=== PATIENT | male | born 1940 | race Caucasian/White ===

== ENCOUNTER 2022-07-10 15:50 | Inpatient (IN) ==
[2022-07-10 17:28] LABS: Basophils # (Auto) 0.03 K/mcL (0.00-0.30); Basophils % (Auto) 0.2 % (0.0-2.0); Eosinophils # (Auto) 0.02 K/mcL (0.00-0.70); Eosinophils % (Auto) 0.1 % (0.0-7.0); Hematocrit 38.9 % (40.1-51.0); Hemoglobin 12.8 g/dL (13.7-17.5); Lymphocytes # (Auto) 1.35 K/mcL (1.50-4.80); Lymphocytes % (Auto) 9.2 % (15.5-49.0); Mean Cell Volume 90.7 fL (80.0-100.0); Mean Corpuscular HGB Conc 32.9 g/dL (31.0-36.0); Mean Platelet Volume 9.8 fL (7.4-10.4); Monocytes # (Auto) 0.73 K/mcL (0.10-0.90); Neutrophils % (Auto) 83.9 % (38.0-78.0); Platelet Count 209 K/mcL (140-440); RBC 4.29 M/mcL (4.63-6.08); Red Cell Distribution Width 15.7 % (11.5-14.5); WBC 14.7 K/mcL (4.5-11.0)
--- NOTE | 2022-07-10 17:35 | Emergency Department Note ---
HPI General Chief complaint: Dizziness Stated complaint: Stroke Sx Time Seen by Provider: 07/10/22 16:04 Source: patient and family Mode of arrival: wheelchair Limitations: no limitations History of Present Illness HPI Narrative: Narrative: Patient is an 81-year-old male who presents to the emergency department due to weakness, difficulty with balance, and pain to left elbow and right lower extremity. Patient states that he fell and hit his elbow about 2 days ago. Since then he has had worsening swelling and pain of his left elbow and right lower extremity. He states that during that time he has also become very weak and has had difficulty with his balance. He states that prior to his injury he did not have any difficulty with weakness or balance. He states that the pain in the left elbow is just to the posterior portion of the elbow, and does endorse redness to the elbow and swelling. He also endorses pain to the right leg with some pain to the buttocks as well. He denies fever, chills, runny nose, sore throat, chest pain, shortness of breath, abdominal pain, nausea, vomiting, or any other concerns at this time. Related Data Allergies Allergy/AdvReac Type Severity Reaction Status Date / Time No Known Drug Allergies Allergy Verified 07/10/22 15:57 Review of Systems ROS ROS Narrative: Narrative: Constitutional: Reports weakness (Generalized); Denies fever Eyes: Denies eye pain or vision change ENT ED: Denies throat pain, hearing loss or rhinorrhea Cardiovascular: Denies chest pain or edema Respiratory: Denies shortness of breath or cough Gastrointestinal: Denies abdominal pain, nausea, vomiting, diarrhea, constipation, hematochezia or melena Genitourinary: Denies dysuria, frequency, hematuria or incontinence Musculoskeletal: Denies back pain or myalgia Integumentary: Reports lesions; Denies rash Neurological: Denies headache, weakness, numbness, confusion or dizziness [facility] Narrative Patient History Narrative: Narrative: Medical/Surgical/Family History All Active Problems (Updated 07/10/22 @ 20:51 by Gabriel Jiménez MD) Cellulitis (Acute) Bursitis (Acute) Lymphangitis (Acute) Social History Smoking Status: Never smoker Exam Narrative Narrative: Narrative: General Limitations: no limitations General appearance: Present alert and in no apparent distress; Absent anxious or appears intoxicated Head Head: Present atraumatic and normocephalic Eye Eye: Present PERRL, EOMI and visual alexander intact; Absent scleral icterus or nystagmus ENT ENT: Present mucous membranes moist; Absent nasal congestion Neck Neck: Present full ROM; Absent tenderness Chest Chest: Present normal inspection and symmetric chest wall rise; Absent t enderness Respiratory Respiratory: Present normal lung sounds bilaterally; Absent respiratory distress or accessory muscle use Cardiovascular Cardiovascular: Present regular rate, normal rhythm and normal heart sounds Adbominal Abdominal: Present soft and normal bowel sounds; Absent distention or tenderness Extremities Extremities: Present normal inspection, full ROM and tenderness (Left elbow and right lower extremity) Back Back: Present normal inspection and full ROM; Absent tenderness Neurological Neurological: Present alert, oriented X3, CN II-XII intact, normal gait and reflexes normal; Absent motor sensory deficit Psychiatric Psychiatric: Present normal affect and normal mood Skin Skin: Present warm (WNL), dry, normal color and erythema (Significant portion of right leg with lymphangitis up medial right thigh to groin, left elbow) Course Vital Signs Vital signs: Vital Signs Temperature 98.0 F 07/10/22 15:54 Pulse Rate 83 07/10/22 15:54 Respiratory Rate 18 07/10/22 15:54 Blood Pressure 111/57 07/10/22 15:54 Pulse Oximetry (%) 98 07/10/22 15:54 Oxygen Delivery Method 07/10/22 15:54 Temperature 98.0 F 07/10/22 15:54 Pulse Rate 79 07/10/22 20:31 Respiratory Rate 19 07/10/22 20:31 Blood Pressure 103/68 07/10/22 20:31 Pulse Oximetry (%) 98 07/10/22 20:31 Oxygen Delivery Method 07/10/22 15:54 [facility] Narrative Medical decision making narrative: Narrative: Patient is an 81-year-old male who presents to the emergency department due to weakness and balance concern. Patient is found to have erythema and swelling over the left elbow that is concerning for potential septic bursitis. There is a significant amount of erythema of the posterior elbow over the swelling that is only posterior on the elbow. For this reason a tap of the bursa was not attempted. Labs including blood cultures were ordered. Antibiotics including vancomycin and ceftriaxone were also ordered. Given right lower extremity swelling and ultrasound was performed and did not demonstrate clot. Patient's right lower extremity is concerning for a cellulitis and lymphangitis. Given the significant findings I have spoken to our hospitalist was agreed to see and evaluate patient for admission. Lab Data Result diagrams: 07/10/22 17:00 07/10/22 17:00 Labs: Lab Results 07/10/22 07/10/22 07/10/22 Range/Units 17:00 17:00 17:00 WBC 14.7 H (4.5-11.0) K/mcL RBC 4.29 L (4.63-6.08) M/mcL Hgb 12.8 L (13.7-17.5) g/dL Hct 38.9 L (40.1-51.0) % MCV 90.7 (80.0-100.0) fL MCH 29.8 (26.0-34.0) pg MCHC 32.9 (31.0-36.0) g/dL RDW 15.7 H (11.5-14.5) % Plt Count 209 (140-440) K/mcL MPV 9.8 (7.4-10.4) fL Immature Gran % (Auto) 1.6 H (0.0-0.5) % Neut % (Auto) 83.9 H (38.0-78.0) % Lymph % (Auto) 9.2 L (15.5-49.0) % [place] % (Auto) 5.0 (1.0-12.0) % Eos % (Auto) 0.1 (0.0-7.0) % Baso % (Auto) 0.2 (0.0-2.0) % Lymph # (Auto) 1.35 L (1.50-4.80) K/mcL [place] # (Auto) 0.73 (0.10-0.90) K/mcL Eos # (Auto) 0.02 (0.00-0.70) K/mcL Baso # (Auto) 0.03 (0.00-0.30) K/mcL Immature Gran # 0.24 H (0.00-0.05) K/mcl Absolute Neutrophils 12.35 H (1.80-8.00) K/mcL ESR 40 H (0-20) mm/hr VBG Lactic Acid (0.5-2.0) mmol/L Sodium 135 (133-145) mmol/L Potassium 2.6 L* (3.3-5.1) mmol/L Chloride 95 L (96-108) mmol/L Carbon Dioxide 21 L (22-30) mmol/L Anion Gap 19.0 H (8.0-16.0) BUN 47 H (8-23) mg/dL Creatinine 3.4 H (0.7-1.2) mg/dL GFR Calculation 16 Glucose 104 (70-105) mg/dL Calcium 8.5 L (8.6-10.4) mg/dL Total Bilirubin 0.5 (0.1-1.0) mg/dL AST 26 (<40) U/L ALT 18 (<40) U/L Alkaline Phosphatase 148 H (39-117) U/L C-Reactive Protein (0.03-0.80) mg/dL Total Protein 7.5 (5.9-8.4) gm/dL Albumin 3.2 (3.2-5.2) gm/dL Globulin 4.3 H (2.2-3.7) gm/dL Albumin/Globulin Ratio 0.7 L (1.0-2.3) 07/10/22 07/10/22 Range/Units 18:35 19:27 WBC (4.5-11.0) K/mcL RBC (4.63-6.08) M/mcL Hgb (13.7-17.5) g/dL Hct (40.1-51.0) % MCV (80.0-100.0) fL MCH (26.0-34.0) pg MCHC (31.0-36.0) g/dL RDW (11.5-14.5) % Plt Count (140-440) K/mcL MPV (7.4-10.4) fL Immature Gran % (Auto) (0.0-0.5) % Neut % (Auto) (38.0-78.0) % Lymph % (Auto) (15.5-49.0) % [place] % (Auto) (1.0-12.0) % Eos % (Auto) (0.0-7.0) % Baso % (Auto) (0.0-2.0) % Lymph # (Auto) (1.50-4.80) K/mcL [place] # (Auto) (0.10-0.90) K/mcL Eos # (Auto) (0.00-0.70) K/mcL Baso # (Auto) (0.00-0.30) K/mcL Immature Gran # (0.00-0.05) K/mcl Absolute Neutrophils (1.80-8.00) K/mcL ESR (0-20) mm/hr VBG Lactic Acid 1.8 (0.5-2.0) mmol/L Sodium (133-145) mmol/L Potassium (3.3-5.1) mmol/L Chloride (96-108) mmol/L Carbon Dioxide (22-30) mmol/L Anion Gap (8.0-16.0) BUN (8-23) mg/dL Creatinine (0.7-1.2) mg/dL GFR Calculation Glucose (70-105) mg/dL Calcium (8.6-10.4) mg/dL Total Bilirubin (0.1-1.0) mg/dL AST (<40) U/L ALT (<40) U/L Alkaline Phosphatase (39-117) U/L C-Reactive Protein 26.10 H (0.03-0.80) mg/dL Total Protein (5.9-8.4) gm/dL Albumin (3.2-5.2) gm/dL Globulin (2.2-3.7) gm/dL Albumin/Globulin Ratio (1.0-2.3) Discharge Plan Patient/Caregiver Discharge Instructions 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
[2022-07-10 17:50] LABS: ALT/SGPT 18 U/L (<40); AST/SGOT 26 U/L (<40); Albumin 3.2 gm/dL (3.2-5.2); Albumin/Globulin Ratio 0.7 (1.0-2.3); Alkaline Phosphatase 148 U/L (39-117); Bilirubin,Total 0.5 mg/dL (0.1-1.0); Blood Urea Nitrogen 47 mg/dL (8-23); Calcium 8.5 mg/dL (8.6-10.4); Carbon Dioxide 21 mmol/L (22-30); Chloride 95 mmol/L (96-108); Globulin 4.3 gm/dL (2.2-3.7); Glomerular Filtration Rate 16; Glucose 104 mg/dL (70-105)
[2022-07-10] MEDS ORDERED: VANCOMYCIN 1,500 MG in 0.9 % SODIUM CHLORIDE 500 ML IV ONE (18:12)
[2022-07-10] MEDS ORDERED: cefTRIAXone 1 GM VIAL IV ONE (18:17)
--- NOTE | 2022-07-10 18:32 | XRay Report ---
CLINICAL INFORMATION: Trauma COMPARISON: None. FINDINGS: The elbow shows mild degeneration. Small effusion is noted with a 8 mm loose body in the anterior recess region. Heavy ossification of the triceps tendon insertion on the olecranon. No fracture identified. Marked posterior soft tissue swelling. IMPRESSION: No fracture. Marked posterior periarticular soft tissue swelling likely posttraumatic contusion Small effusion with an 8 mm loose body in the anterior aspect and mild elbow degeneration Interpreted and Authenticated by: Malcolm Cunningham 07/10/22
[2022-07-10] MEDS ORDERED: 0.9 % SODIUM CHLORIDE 500 ML IV ONE (19:17)
[2022-07-10] MEDS ORDERED: POTASSIUM CHLORIDE 20 MEQ TABLET PO ONE (19:41)
--- NOTE | 2022-07-10 19:45 | Internal Med History&Physical ---
HPI History of Present Illness Patient information: Note initiated : 07/10/22 at 7:34 pm Service Date, if different from initiated Date: [] Patient: Stas Canela 81 y/o M admitted on for Stroke Sx. Chief Complaint: [] History of present illness: Mr. Canela is a 81 year old M Presents to the ED with weakness and dizziness status progressed over the past 3 days. Patient fell out of the exercise bike about a week ago onto his left elbow. His elbow has become increasingly red swollen and tender. Then about 3 days ago he came severely weak and unable to move around much. He saw his primary care provider today who sent him into the ED. Patient found to have a cellulitis left elbow concern for septic bursitis. He had a leukocytosis of almost 15 with a hypotension and acute kidney injury and hypokalemia. Patient also has a history of A. fib CHF systolic dysfunction CAD with CABG. His right leg was swollen with some excoriations and erythematous. He has had problems with his leg since he multiple fractures on that lower extremity as well as veins taken from and from his CABG. He says his leg becomes red and swollen on occasion but its been worse lately and its painful. He denies fevers chills coughing or shortness of breath. Review of Systems: Pertinent positives as above. Denies headache/fever/chills/nausea/vomiting/chest or abdominal pain/cough/dyspnea/diarrhea. Remaining 10 point review of system reviewed negative PFSH PFSH Social History smoking status: Never smoker MEDS/ALLERGIES Home Medications and Allergies Allergies Allergy/AdvReac Type Severity Reaction Status Date / Time No Known Drug Allergies Allergy Verified 07/10/22 15:57 EXAM Constitutional Vitals: Temp Pulse Resp BP Pulse Ox O2 Del Method 98.0 F 76 18 104/69 94 07/10/22 15:54 07/10/22 19:16 07/10/22 19:16 07/10/22 19:16 07/10/22 19:16 07/10/22 15:54 Exam: General: Alert, Awake, No acute Distress Eyes/N/T: EOMI, PERRL, Head/Neck: neck supple, normocephalic atraumatic CV: irreg irreg, No murmurs, normal s1/s2 Pulm: Clear b/l, no wheezing/rhonchi/rales Abd: soft, nontender, +BS x4 Ext: no clubbing/cyanosis. Left elbow erythematous/edematous/tender & warm to touch. RLE 3+ edema with erythema and not particularly tender to touch and not warm to touch Neuro: Alert, no focal deficits, moves all extremities, CN 2-12 grossly intact, symmetrical strength b/l upper/lower, sensations intact b/l upper/lower Skin: warm/dry DATA Data Completed and Pending Labs: Labs from last 24 hours 07/10/22 07/10/22 07/10/22 19:27 18:35 17:00 WBC RBC Hgb Hct MCV MCH MCHC RDW Plt Count MPV Immature Gran % (Auto) Neut % (Auto) Lymph % (Auto) [place] % (Auto) Eos % (Auto) Baso % (Auto) Lymph # (Auto) [place] # (Auto) Eos # (Auto) Baso # (Auto) Immature Gran # Absolute Neutrophils ESR Pending VBG Lactic Acid Pending Sodium Potassium Chloride Carbon Dioxide Anion Gap BUN Creatinine GFR Calculation Glucose Calcium Total Bilirubin AST ALT Alkaline Phosphatase C-Reactive Protein 26.10 H Total Protein Albumin Globulin Albumin/Globulin Ratio 07/10/22 07/10/22 17:00 17:00 WBC 14.7 H RBC 4.29 L Hgb 12.8 L Hct 38.9 L MCV 90.7 MCH 29.8 MCHC 32.9 RDW 15.7 H Plt Count 209 MPV 9.8 Immature Gran % (Auto) 1.6 H Neut % (Auto) 83.9 H Lymph % (Auto) 9.2 L [place] % (Auto) 5.0 Eos % (Auto) 0.1 Baso % (Auto) 0.2 Lymph # (Auto) 1.35 L [place] # (Auto) 0.73 Eos # (Auto) 0.02 Baso # (Auto) 0.03 Immature Gran # 0.24 H Absolute Neutrophils 12.35 H ESR VBG Lactic Acid Sodium 135 Potassium 2.6 L* Chloride 95 L Carbon Dioxide 21 L Anion Gap 19.0 H BUN 47 H Creatinine 3.4 H GFR Calculation 16 Glucose 104 Calcium 8.5 L Total Bilirubin 0.5 AST 26 ALT 18 Alkaline Phosphatase 148 H C-Reactive Protein Total Protein 7.5 Albumin 3.2 Globulin 4.3 H Albumin/Globulin Ratio 0.7 L A/P Narrative A/P Narrative: A: *Severe sepsis with hypotension: *Left elbow cellulitis/?Septic bursitis: -h/o strep pyogenes cellulits *SULEIMAN on possibly CKD: 2/2 above *Hypokalemia: *h/o systolic(40-45) CHF: on lasix/acei *CAD w/cabg: unknown if on asa/bb *chronic Afib: unknown home meds, patient not sure if he is on blood thinning medication *Carotid Artery Dz: per PCP P: -IV Abx including temp clinda for toxin inhibition, pending BC, MRSA screen -IVF o/n -check lactate -Monitor and replete electrolytes -monitor uop and f/u renal fxn -elevate right leg and comp wraps - -PT/OT -Home medication reconciliation -CM for placement needs -ppx: Lovenox Time Spent With Patient Time: Total time spent is greater than 50% in coordination of care (as documented) at patient's floor/unit and/or counseling patient: Total time spent with greater than 50% in coordination of care (as documented) at patient's floor/unit and/or counseling patient:: 50 - 70 minutes
[2022-07-10] MEDS ORDERED: SENNOSIDES 1 TABLET PO PRN (21:24)
[2022-07-10] MEDS ORDERED: VANCOMYCIN PER PHARMACY IV SCH (21:24)
[2022-07-10] MEDS ORDERED: ONDANSETRON 4 MG/2 ML VIAL IV PRN (21:24)
[2022-07-10] MEDS ORDERED: HYDROcodone/APAP 5/325MG TABLET PO PRN (21:24)
[2022-07-10] MEDS ORDERED: POTASSIUM CHLORIDE 20 MEQ TABLET PO PRN (21:24)
[2022-07-10] MEDS ORDERED: METOPROLOL TARTRATE 5 MG/5 ML VIAL IV PRN (21:24)
[2022-07-10] MEDS ORDERED: MAGNESIUM SULFATE 2 GM/50 ML BAG IV PRN (21:24)
[2022-07-10] MEDS ORDERED: POLYETHYLENE GLYCOL 3350 17 GM PACKET PO PRN (21:24)
[2022-07-10] MEDS ORDERED: POTASSIUM CHLORIDE 40 MEQ in DEXTROSE 5% IN WATER 500 ML IV ONE (21:24)
[2022-07-10] MEDS ORDERED: POTASSIUM CHLORIDE 40 MEQ in DEXTROSE 5% IN WATER 500 ML IV PRN (21:24)
[2022-07-10] MEDS ORDERED: IPRATROPIUM/ALBUTEROL 3 ML AMPUL.NEB NEB PRN (21:24)
[2022-07-10] MEDS ORDERED: ACETAMINOPHEN 325 MG TABLET PO PRN (21:24)
[2022-07-10] MEDS: 0.9 % SODIUM CHLORIDE 1,000 ML IV SCH (21:33)
[2022-07-10] MEDS ORDERED: POTASSIUM CHLORIDE 40 MEQ in DEXTROSE 5% IN WATER 500 ML IV SCH (21:45)
[2022-07-10] MEDS ORDERED: cefTRIAXone 1 GM VIAL IV SCH (21:45)
[2022-07-10] MEDS ORDERED: POTASSIUM CHLORIDE 40 MEQ/20 ML VIAL IV ONE (21:49)
[2022-07-10] MEDS: POTASSIUM CHLORIDE 20 MEQ TABLET PO PRN (21:59)
[2022-07-10] MEDS: DOCUSATE SODIUM 100 MG CAPSULE PO SCH (22:00)
[2022-07-10] MEDS: 0.9 % SODIUM CHLORIDE 10 ML SYRINGE IV SCH (22:01)
[2022-07-10] MEDS: CLINDAMYCIN IN 0.9 % SOD CHLOR 600 MG/50 ML BAG IV SCH (22:49)
--- NOTE | 2022-07-11 03:53 | Ultrasound Report ---
CLINICAL INFORMATION: Right leg pain and swelling COMPARISON: None. FINDINGS: The entire deep venous system including the common femoral, superficial femoral, popliteal and paired trifurcation calf veins are easily compressible and show normal venous blood flow on color and spectral Doppler. No evidence of thrombus IMPRESSION: Negative exam - no evidence of deep vein thrombosis. 4-5 mildly enlarged lymph nodes in the right inguinal region likely represent benign reactive adenopathy related to cellulitis in the right leg. Interpreted and Authenticated by: Malcolm Cunningham 07/11/22
[2022-07-11] MEDS: 0.9 % SODIUM CHLORIDE 10 ML SYRINGE IV SCH ×3 (06:21→22:09)
[2022-07-11 06:29] LABS: Basophils # (Auto) 0.03 K/mcL (0.00-0.30); Basophils % (Auto) 0.2 % (0.0-2.0); Eosinophils # (Auto) 0.02 K/mcL (0.00-0.70); Eosinophils % (Auto) 0.1 % (0.0-7.0); Hematocrit 37.8 % (40.1-51.0); Lymphocytes # (Auto) 0.88 K/mcL (1.50-4.80); Lymphocytes % (Auto) 6.3 % (15.5-49.0); Mean Cell Volume 94.5 fL (80.0-100.0); Mean Corpuscular HGB Conc 31.7 g/dL (31.0-36.0); Mean Platelet Volume 9.9 fL (7.4-10.4); Monocytes # (Auto) 0.58 K/mcL (0.10-0.90); Monocytes % (Auto) 4.2 % (1.0-12.0); Neutrophils % (Auto) 88.6 % (38.0-78.0); Platelet Count 202 K/mcL (140-440); Red Cell Distribution Width 15.6 % (11.5-14.5); WBC 13.9 K/mcL (4.5-11.0)
[2022-07-11 07:37] LABS: ALT/SGPT 15 U/L (<40); AST/SGOT 24 U/L (<40); Albumin 2.2 gm/dL (3.2-5.2); Albumin/Globulin Ratio 0.5 (1.0-2.3); Alkaline Phosphatase 133 U/L (39-117); Bilirubin,Direct 0.2 mg/dL (<0.3); Bilirubin,Total 0.4 mg/dL (0.1-1.0); Blood Urea Nitrogen 33 mg/dL (8-23); Calcium 7.8 mg/dL (8.6-10.4); Carbon Dioxide 21 mmol/L (22-30); Chloride 102 mmol/L (96-108); Globulin 4.1 gm/dL (2.2-3.7); Glomerular Filtration Rate 28; Glucose 93 mg/dL (70-105); Lactate Dehydrogenase 261 U/L (135-225); Phosphorous 3.5 mg/dL (2.5-4.5); Triglycerides 68 mg/dL (<150); Uric Acid 11.6 mg/dL (2.5-8.0)
[2022-07-11] MEDS: CLINDAMYCIN IN 0.9 % SOD CHLOR 600 MG/50 ML BAG IV SCH ×3 (08:00→22:09)
--- NOTE | 2022-07-11 08:06 | Internal Med Progress Note ---
SUBJECTIVE Subjective Patient information: Note initiated : 07/11/22 at 7:58 am Service Date, if different from initiated Date: [] Patient: Stas Canela 81 y/o M admitted on 07/10/22 for Stroke Sx/Sepsis. Chief Complaint: [] Interval history: History of present illness: Mr. Canela is a 81 year old M Presents to the ED with weakness and dizziness status progressed over the past 3 days. Patient fell out of the exercise bike about a week ago onto his left elbow. His elbow has become increasingly red swollen and tender. Then about 3 days ago he came severely weak and unable to move around much. He saw his primary care provider today who sent him into the ED. Patient found to have a cellulitis left elbow concern for septic bursitis. He had a leukocytosis of almost 15 with a hypotension and acute kidney injury and hypokalemia. Patient also has a history of A. fib CHF systolic dysfunction CAD with CABG. His right leg was swollen with some excoriations and erythematous. He has had problems with his leg since he multiple fractures on that lower extremity as well as veins taken from and from his CABG. He says his leg becomes red and swollen on occasion but its been worse lately and its painful. He denies fevers chills coughing or shortness of breath. 07/11 Patient arm feels stiff. His elbow may be a little bit less swollen. He says his leg feels better. He says he still very weak. Patient says he does take aspirin every day. Review of Systems: denies headache/fever/chills/nausea/vomiting/chest or abdominal pain/cough/dy spnea/diarrhea. Otherwise see above. Constitutional Vitals: Vital Signs Temp Pulse Resp BP Pulse Ox O2 Del Method 97.7 F 77 16 95/62 94 07/11/22 04:01 07/11/22 04:31 07/11/22 04:31 07/11/22 04:31 07/11/22 04:31 07/11/22 00:01 Period Temp Pulse Resp BP Sys/Harrison Pulse Ox O2 Del Method O2 Flow Rate Last 24 Hr 97.7 F-98.3 F 69-85 13-24 77-136/46-89 82-100 Room Air-Room Air Intake and Output 07/10/22 07/11/22 07/11/22 21:59 05:59 13:59 Intake Total 1000 760 Output Total 200 300 Balance 1000 560 -300 Weight 75.886 kg Intake & Output: Intake & Output 07/10/22 07/11/22 07/11/22 21:59 05:59 13:59 Intake Total 1000 760 Output Total 200 300 Balance 1000 560 -300 Weight 75.886 kg Intake: IV 1000 520 Sodium Chloride 0.9% 500 ml @ 500 Wide Open IV BOLUS ONE Rx#: [id number] Potassium Chloride 40 Meq In 520 Dextrose 5% in Water 500 ml @ 130 mls/hr IV 2145 NAEEM Rx#: [id number] Vancomycin 1,500 mg In Sodium 500 Chloride 0.9% 500 ml @ 333.3 mls/hr IV ONCE ONE Rx#: [id number] Oral 240 Output: Void Amount 200 300 Other: Urine Appearance Clear Clear Urine Color Light Nikole Dark Yellow Urine Odor Normal Exam: General: Alert, Awake, No acute Distress Eyes/N/T: EOMI, , Head/Neck: neck supple, CV: irreg irreg, No murmurs, Pulm: Clear b/l, no wheezing/rhonchi/rales Abd: soft, nontender, +BS x4 Ext: no clubbing/cyanosis. Left elbow erythematous(mildly improved today)/edematous/tender & warm to touch. RLE 2-3+ edema with erythema and not particularly tender to touch and not warm to touch Neuro: Alert, no focal deficits, moves all extremities, Skin: warm/dry OBJ DATA Labs CBC & Chem 7: 07/11/22 05:38 07/11/22 05:38 Labs: Abnormal Lab Results 07/11/22 07/11/22 07/10/22 05:38 05:38 18:35 WBC 13.9 H RBC 4.00 L Hgb 12.0 L Hct 37.8 L RDW 15.6 H Immature Gran % (Auto) 0.6 H Neut % (Auto) 88.6 H Lymph % (Auto) 6.3 L Lymph # (Auto) 0.88 L Immature Gran # 0.09 H Absolute Neutrophils 12.27 H ESR Potassium 2.7 L* Chloride Carbon Dioxide 21 L Anion Gap BUN 33 H Creatinine 2.1 H Uric Acid 11.6 H Calcium 7.8 L Alkaline Phosphatase 133 H Lactate Dehydrogenase 261 H C-Reactive Protein 26.10 H Albumin 2.2 L Globulin 4.1 H Albumin/Globulin Ratio 0.5 L 07/10/22 07/10/22 07/10/22 17:00 17:00 17:00 WBC 14.7 H RBC 4.29 L Hgb 12.8 L Hct 38.9 L RDW 15.7 H Immature Gran % (Auto) 1.6 H Neut % (Auto) 83.9 H Lymph % (Auto) 9.2 L Lymph # (Auto) 1.35 L Immature Gran # 0.24 H Absolute Neutrophils 12.35 H ESR 40 H Potassium 2.6 L* Chloride 95 L Carbon Dioxide 21 L Anion Gap 19.0 H BUN 47 H Creatinine 3.4 H Uric Acid Calcium 8.5 L Alkaline Phosphatase 148 H Lactate Dehydrogenase C-Reactive Protein Albumin Globulin 4.3 H Albumin/Globulin Ratio 0.7 L Meds: Medications Acetaminophen (Acetaminophen 325 Mg Tablet) 650 mg PO Q6HP PRN; Protocol PRN Reason: Per Pain Protocol/Fever > 101 Hydrocodone Bitart/Acetaminophen (Hydrocodone/Apap 5/325mg Tablet) 1 tab PO Q 4HP PRN PRN Reason: PAIN LEVEL 3-6 Albuterol/Ipratropium (Ipratropium/Albuterol 3 Ml Ampul.Neb) 3 ml NEB Q4HP PRN PRN Reason: Shortness Of Breath Docusate Sodium (Docusate Sodium 100 Mg Capsule) 100 mg PO BID [facility] Last Admin: 07/10/22 22:00 Dose: 100 mg Enoxaparin Sodium (Enoxaparin 40 Mg/0.4 Ml Syringe) 40 mg SQ DAILY [facility] Potassium Chloride 40 meq/ (Dextrose) 520 mls @ 130 mls/hr IV UD PRN PRN Reason: Potassium < 3 Magnesium Sulfate (Magnesium Sulfate) 2 gm in 50 mls @ 50 mls/hr IV UD PRN PRN Reason: Magnesium </= 1.6 Sodium Chloride (Sodium Chloride 0.9%) 1,000 mls @ 65 mls/hr IV .[id number] [facility] Stop: 07/11/22 12:47 Last Admin: 07/10/22 21:33 Dose: 65 mls/hr Ceftriaxone Sodium 2 gm/ (Dextrose) 50 mls @ 100 mls/hr IV Q24H [facility]; Protocol CLINDAMYCIN IN 0.9 % SOD CHLOR (Clindamycin 600 Mg/50 Ml-Ns) 600 mg in 50 mls @ 100 mls/hr IV Q8 [facility] Stop: 07/12/22 14:29 Last Admin: 07/10/22 22:49 Dose: 100 mls/hr Metoprolol Tartrate (Metoprolol Tartrate 5 Mg/5 Ml Vial) 5 mg IV Q2HP PRN PRN Reason: Tachyarrhythmias HR>110 Ondansetron HCl (Ondansetron 4 Mg/2 Ml Vial) 4 mg IV Q4HP PRN PRN Reason: Nausea And Vomiting Polyethylene Glycol (Polyethylene Glycol 3350 17 Gm Packet) 17 gm PO DAILYP PRN PRN Reason: Constipation Potassium Chloride (Potassium Chloride 20 Meq Tablet) 40 meq PO UD PRN PRN Reason: Potssium is 3-3.5 Potassium Chloride (Potassium Chloride 20 Meq Tablet) 40 meq PO UD PRN PRN Reason: Potassium < 3 Last Admin: 07/10/22 21:59 Dose: 40 meq Senna (Sennosides 1 Tablet) 2 tab PO DAILYP PRN PRN Reason: Constipation Sodium Chloride (0.9 % Sodium Chloride 10 Ml Syringe) 10 ml IV Q8 [facility] Last Admin: 07/11/22 06:21 Dose: 10 ml Vancomycin HCl (Vancomycin Per Pharmacy) 1 order IV UD [facility]; Protocol A/P Narrative A/P Narrative: A: *Severe sepsis with hypotension: *Left elbow cellulitis/?Septic bursitis & likely RLE cellulitis: -h/o strep pyogenes cellulits *SULEIMAN on possibly CKD(unknown baseline): 2/2 above -improving with IVF *Hypokalemia: *h/o systolic(40-45) CHF: on lasix/acei *RLE edema, acute on chronic: h/o of multiple fractures and vein harvest for cab g *CAD w/cabg: unknown if on asa, is on BB *chronic Afib: unknown home meds, patient not sure if he is on blood thinning medication *Carotid Artery Dz: per PCP *GERD: *BPH w/UR: P: -IV Abx including temporary clinda for toxin inhibition, pending BC, MRSA screen neg -discuss with ortho abx vs washout -IVF -Monitor and replete electrolytes -monitor uop and f/u renal fxn -elevate right leg and comp wraps -hold acei/norvasc for suleiman and low BP, restart BB -cont statin/asa -PT/OT -CM for placement needs -ppx: Lovenox / home H2 Time Spent With Patient Time: Total time spent is greater than 50% in coordination of care (as documented) at patient's floor/unit and/or counseling patient: Total time spent with greater than 50% in coordination of care (as documented) at patient's floor/unit and/or counseling patient:: 25 - 35 minutes
[2022-07-11] MEDS: METOPROLOL SUCCINATE 25 MG TAB.XL.24H PO SCH (08:35)
[2022-07-11] MEDS: FINASTERIDE 5 MG TABLET PO SCH (08:35)
[2022-07-11] MEDS: ATORVASTATIN 40 MG TABLET PO SCH (08:35)
[2022-07-11] MEDS: POTASSIUM CHLORIDE 20 MEQ TABLET PO PRN (08:35)
[2022-07-11] MEDS: DOCUSATE SODIUM 100 MG CAPSULE PO SCH ×2 (08:36→20:21)
[2022-07-11] MEDS: ENOXAPARIN 40 MG/0.4 ML SYRINGE SQ SCH (08:36)
[2022-07-11 09:23] LABS: Anisocytosis 1+ (None Seen); Band Neutrophils % 10 % (0-10); Hypochromasia 1+ (None Seen); Lymphocytes % 2 % (15-49); Monocytes % (Manual) 2 % (1-12); Platelet Estimate NORMAL (Normal); RBC Morphology ABNORMAL (Normal); Reactive Lymphocytes 1 % (0-2); Segmented Neutrophils % 85 % (38-78); Toxic Granulation MANY (None Seen)
[2022-07-11] MEDS: cefTRIAXone 2 GM in DEXTROSE 5% IN WATER 50 ML IV SCH (09:44)
[2022-07-11] MEDS: ASPIRIN 81 MG TAB.CHEW PO SCH (10:42)
[2022-07-11 13:27] LABS: Vancomycin,Random 10.2 ug/mL
[2022-07-11] MEDS ORDERED: VANCOMYCIN 1,000 MG in 0.9 % SODIUM CHLORIDE 250 ML IV SCH (15:00)
[2022-07-11] MEDS: 0.9 % SODIUM CHLORIDE 1,000 ML IV SCH (17:20)
[2022-07-11] MEDS ORDERED: POTASSIUM CHLORIDE 20 MEQ TABLET PO SCH (17:30)
[2022-07-11] MEDS: FAMOTIDINE 20 MG TABLET PO SCH (20:25)
[2022-07-12] MEDS: 0.9 % SODIUM CHLORIDE 10 ML SYRINGE IV SCH ×3 (05:50→20:05)
[2022-07-12] MEDS: CLINDAMYCIN IN 0.9 % SOD CHLOR 600 MG/50 ML BAG IV SCH ×2 (05:50→14:26)
[2022-07-12 06:36] LABS: Basophils # (Auto) 0.01 K/mcL (0.00-0.30); Basophils % (Auto) 0.1 % (0.0-2.0); Eosinophils # (Auto) 0.05 K/mcL (0.00-0.70); Eosinophils % (Auto) 0.3 % (0.0-7.0); Hematocrit 32.4 % (40.1-51.0); Hemoglobin 10.1 g/dL (13.7-17.5); Lymphocytes # (Auto) 1.26 K/mcL (1.50-4.80); Lymphocytes % (Auto) 8.1 % (15.5-49.0); Mean Cell Volume 95.6 fL (80.0-100.0); Mean Corpuscular HGB Conc 31.2 g/dL (31.0-36.0); Mean Platelet Volume 9.6 fL (7.4-10.4); Monocytes # (Auto) 0.59 K/mcL (0.10-0.90); Monocytes % (Auto) 3.8 % (1.0-12.0); Neutrophils % (Auto) 86.9 % (38.0-78.0); Platelet Count 195 K/mcL (140-440); RBC 3.39 M/mcL (4.63-6.08); WBC 15.5 K/mcL (4.5-11.0)
[2022-07-12 06:44] LABS: Erythrocyte Sedimentation Rate 50 mm/hr (0-20)
[2022-07-12 06:55] LABS: Blood Urea Nitrogen 23 mg/dL (8-23); Calcium 7.6 mg/dL (8.6-10.4); Carbon Dioxide 19 mmol/L (22-30); Chloride 102 mmol/L (96-108); Glomerular Filtration Rate 61; Glucose 90 mg/dL (70-105)
--- NOTE | 2022-07-12 06:56 | Orthopedic Progress Note ---
SUBJECTIVE Subjective Patient information: Note initiated : 07/12/22 at 6:53 am Service Date, if different from initiated Date: [] Patient: Stas Canela 81 y/o M admitted on 07/10/22 for Stroke Sx/Sepsis. Chief Complaint: [] Constitutional Vitals: Vital Signs Temp Pulse Resp BP Pulse Ox O2 Del Method 98.7 F 78 20 112/64 97 07/12/22 04:00 07/12/22 04:00 07/12/22 04:00 07/12/22 04:00 07/12/22 04:00 07/12/22 04:00 Period Temp Pulse Resp BP Sys/Harrison Pulse Ox O2 Del Method O2 Flow Rate Last 24 Hr 98 F-99.2 F 78-93 16-24 77-137/43-125 94-98 Room Air-Room Air Intake and Output 07/11/22 07/12/22 07/12/22 21:59 05:59 13:59 Intake Total 3020 270 50 Output Total 575 Balance 2445 270 50 Weight 165 lb 12.8 oz Intake & Output: Intake & Output 07/11/22 07/12/22 07/12/22 21:59 05:59 13:59 Intake Total 3020 270 50 Output Total 575 Balance 2445 270 50 Weight 165 lb 12.8 oz Intake: IV 1820 50 50 Sodium Chloride 0.9% 1,000 ml @ 1000 65 mls/hr IV .[id number] [facility] Rx#: [id number] Potassium Chloride 40 Meq In 520 Dextrose 5% in Water 500 ml @ 130 mls/hr IV UD PRN Rx#: [id number] Vancomycin 1,000 mg In Sodium 250 Chloride 0.9% 250 ml @ 250 mls/ hr IV 1500 [facility] Rx#:[id number] Oral 1200 220 Output: Void Amount 575 Other: Meal Dinner Percent of Meal Consumed 50% Feeding Ability Independent Urine Appearance Clear Urine Color Yellow OBJ DATA Labs CBC & Chem 7: 07/12/22 05:23 07/11/22 05:38 Labs: Abnormal Lab Results 07/12/22 07/11/22 07/11/22 05:23 08:10 05:38 WBC 15.5 H RBC 3.39 L Hgb 10.1 L Hct 32.4 L RDW 16.0 H Immature Gran % (Auto) 0.8 H Neut % (Auto) 86.9 H Lymph % (Auto) 8.1 L Lymph # (Auto) 1.26 L Seg Neutrophils % 85 H Lymphocytes % 2 L Immature Gran # 0.12 H Absolute Neutrophils 13.51 H WBC Morphology Abnormal A Toxic Granulation Many A RBC Morphology Abnormal A Hypochromasia 1+ A Anisocytosis 1+ A ESR 50 H Potassium 2.7 L* Chloride Carbon Dioxide 21 L Anion Gap BUN 33 H Creatinine 2.1 H Uric Acid 11.6 H Calcium 7.8 L Alkaline Phosphatase 133 H Lactate Dehydrogenase 261 H C-Reactive Protein Albumin 2.2 L Globulin 4.1 H Albumin/Globulin Ratio 0.5 L 07/11/22 07/10/22 07/10/22 05:38 18:35 17:00 WBC 13.9 H RBC 4.00 L Hgb 12.0 L Hct 37.8 L RDW 15.6 H Immature Gran % (Auto) 0.6 H Neut % (Auto) 88.6 H Lymph % (Auto) 6.3 L Lymph # (Auto) 0.88 L Seg Neutrophils % Lymphocytes % Immature Gran # 0.09 H Absolute Neutrophils 12.27 H WBC Morphology Toxic Granulation RBC Morphology Hypochromasia Anisocytosis ESR 40 H Potassium Chloride Carbon Dioxide Anion Gap BUN Creatinine Uric Acid Calcium Alkaline Phosphatase Lactate Dehydrogenase C-Reactive Protein 26.10 H Albumin Globulin Albumin/Globulin Ratio 07/10/22 07/10/22 17:00 17:00 WBC 14.7 H RBC 4.29 L Hgb 12.8 L Hct 38.9 L RDW 15.7 H Immature Gran % (Auto) 1.6 H Neut % (Auto) 83.9 H Lymph % (Auto) 9.2 L Lymph # (Auto) 1.35 L Seg Neutrophils % Lymphocytes % Immature Gran # 0.24 H Absolute Neutrophils 12.35 H WBC Morphology Toxic Granulation RBC Morphology Hypochromasia Anisocytosis ESR Potassium 2.6 L* Chloride 95 L Carbon Dioxide 21 L Anion Gap 19.0 H BUN 47 H Creatinine 3.4 H Uric Acid Calcium 8.5 L Alkaline Phosphatase 148 H Lactate Dehydrogenase C-Reactive Protein Albumin Globulin 4.3 H Albumin/Globulin Ratio 0.7 L Meds: Medications Acetaminophen (Acetaminophen 325 Mg Tablet) 650 mg PO Q6HP PRN; Protocol PRN Reason: Per Pain Protocol/Fever > 101 Hydrocodone Bitart/Acetaminophen (Hydrocodone/Apap 5/325mg Tablet) 1 tab PO Q4HP PRN PRN Reason: PAIN LEVEL 3-6 Albuterol/Ipratropium (Ipratropium/Albuterol 3 Ml Ampul.Neb) 3 ml NEB Q4HP PRN PRN Reason: Shortness Of Breath Aspirin (Aspirin 81 Mg Tab.Chew) 81 mg PO DAILY [facility] Last Admin: 07/11/22 10:42 Dose: 81 mg Atorvastatin Calcium (Atorvastatin 40 Mg Tablet) 80 mg PO DAILY [facility] Last Admin: 07/11/22 08:35 Dose: 80 mg Docusate Sodium (Docusate Sodium 100 Mg Capsule) 100 mg PO BID [facility] Last Admin: 07/11/22 20:21 Dose: Not Given Enoxaparin Sodium (Enoxaparin 40 Mg/0.4 Ml Syringe) 40 mg SQ DAILY [facility] Last Admin: 07/11/22 08:36 Dose: 40 mg Famotidine (Famotidine 20 Mg Tablet) 20 mg PO QHS [facility] Last Admin: 07/11/22 20:25 Dose: 20 mg Finasteride (Finasteride 5 Mg Tablet) 5 mg PO DAILY [facility] Last Admin: 07/11/22 08:35 Dose: 5 mg Potassium Chloride 40 meq/ (Dextrose) 520 mls @ 130 mls/hr IV UD PRN PRN Reason: Potassium < 3 Last Infusion: 07/11/22 14:59 Dose: Infused Magnesium Sulfate (Magnesium Sulfate) 2 gm in 50 mls @ 50 mls/hr IV UD PRN PRN Reason: Magnesium </= 1.6 Ceftriaxone Sodium 2 gm/ (Dextrose) 50 mls @ 100 mls/hr IV Q24H [facility]; Protocol Last Infusion: 07/11/22 10:24 Dose: Infused CLINDAMYCIN IN 0.9 % SOD CHLOR (Clindamycin 600 Mg/50 Ml-Ns) 600 mg in 50 mls @ 100 mls/hr IV Q8 [facility] Stop: 07/12/22 14:29 Last Infusion: 07/12/22 06:40 Dose: Infused Metoprolol Succinate (Metoprolol Succinate 25 Mg Tab.Xl.24h) 25 mg PO DAILY [facility] Last Admin: 07/11/22 08:35 Dose: 25 mg Metoprolol Tartrate (Metoprolol Tartrate 5 Mg/5 Ml Vial) 5 mg IV Q2HP PRN PRN Reason: Tachyarrhythmias HR>110 Ondansetron HCl (Ondansetron 4 Mg/2 Ml Vial) 4 mg IV Q4HP PRN PRN Reason: Nausea And Vomiting Polyethylene Glycol (Polyethylene Glycol 3350 17 Gm Packet) 17 gm PO DAILYP PRN PRN Reason: Constipation Potassium Chloride (Potassium Chloride 20 Meq Tablet) 40 meq PO UD PRN PRN Reason: Potssium is 3-3.5 Potassium Chloride (Potassium Chloride 20 Meq Tablet) 40 meq PO UD PRN PRN Reason: Potassium < 3 Last Admin: 07/11/22 08:35 Dose: 40 meq Senna (Sennosides 1 Tablet) 2 tab PO DAILYP PRN PRN Reason: Constipation Sodium Chloride (0.9 % Sodium Chloride 10 Ml Syringe) 10 ml IV Q8 [facility] Last Admin: 07/12/22 05:50 Dose: 10 ml A/P Assessment and plan (1) Bursitis: Assessment and plan: dictated consult to follow- no plan for surgical debridement. Does appear to be septic bursitis. Pt reports improved since yesterday. Still fluctuant. Recommend compression with PATRICIA wrap and immobilization with sling or posterior splint. OK with IV antibiotics but would transition to oral to see if continued improvement then potential d/c home with f/u with me if continues to improve on orals. Typically 3 weeks oral antibiotics. will re eval tomorrow. --did discuss with nurse- might have to change IV to the other side. will place PATRICIA and sling Status: Acute Time Spent With Patient Time: Total time spent is greater than 50% in coordination of care (as documented) at patient's floor/unit and/or counseling patient:
--- NOTE | 2022-07-12 08:05 | Internal Med Progress Note ---
SUBJECTIVE Subjective Patient information: Note initiated : 07/12/22 at 8:00 am Service Date, if different from initiated Date: [] Patient: Stas Canela 81 y/o M admitted on 07/10/22 for Stroke Sx/Sepsis. Chief Complaint: [] Interval history: History of present illness: Mr. Canela is a 81 year old M Presents to the ED with weakness and dizziness status progressed over the past 3 days. Patient fell out of the exercise bike about a week ago onto his left elbow. His elbow has become increasingly red swollen and tender. Then about 3 days ago he came severely weak and unable to move around much. He saw his primary care provider today who sent him into the ED. Patient found to have a cellulitis left elbow concern for septic bursitis. He had a leukocytosis of almost 15 with a hypotension and acute kidney injury and hypokalemia. Patient also has a history of A. fib CHF systolic dysfunction CAD with CABG. His right leg was swollen with some excoriations and erythematous. He has had problems with his leg since he multiple fractures on that lower extremity as well as veins taken from and from his CABG. He says his leg becomes red and swollen on occasion but its been worse lately and its painful. He denies fevers chills coughing or shortness of breath. 07/11 Patient arm feels stiff. His elbow may be a little bit less swollen. He says his leg feels better. He says he still very weak. Patient says he does take aspirin every day. 07/12 Patient says he is feeling little better today although his white blood cell count did increase. But he is afebrile. Patient seen by orthopedic surgery this morning. Arm wrapped in Misha wrapped no drainage at this time. Patient states erythema up the arm. Patient states the arm is polishing machine tender but less painful and the swelling is starting to improve. Review of Systems: denies headache/fever/chills/nausea/vomiting/chest or abdominal pain/dyspnea/diarrhea. Otherwise see above. Constitutional Vitals: Vital Signs Temp Pulse Resp BP Pulse Ox O2 Del Method 98.7 F 78 20 112/64 97 07/12/22 04:00 07/12/22 04:00 07/12/22 04:00 07/12/22 04:00 07/12/22 04:00 07/12/22 04:00 Period Temp Pulse Resp BP Sys/Harrison Pulse Ox O2 Del Method O2 Flow Rate Last 24 Hr 98 F-99.2 F 78-93 16-24 77-112/43-74 94-98 Room Air-Room Air Intake and Output 07/11/22 07/12/22 07/12/22 21:59 05:59 13:59 Intake Total 3020 270 954 Output Total 575 Balance 2445 270 954 Weight 75.206 kg Intake & Output: Intake & Output 07/11/22 07/12/22 07/12/22 21:59 05:59 13:59 Intake Total 3020 270 954 Output Total 575 Balance 2445 270 954 Weight 75.206 kg Intake: IV 1820 50 954 Sodium Chloride 0.9% 1,000 ml @ 1000 904 65 mls/hr IV .[id number] [facility] Rx#: [id number] Potassium Chloride 40 Meq In 520 Dextrose 5% in Water 500 ml @ 130 mls/hr IV UD PRN Rx#: [id number] Vancomycin 1,000 mg In Sodium 250 Chloride 0.9% 250 ml @ 250 mls/ hr IV 1500 [facility] Rx#:[id number] Oral 1200 220 Output: Void Amount 575 Other: Meal Dinner Percent of Meal Consumed 50% Feeding Ability Independent Urine Appearance Clear Urine Color Yellow Exam: General: Alert, Awake, No acute Distress Eyes/N/T: EOMI, , Head/Neck: neck supple, CV: irreg irreg, No murmurs, Pulm: Clear b/l, no wheezing/rhonchi/rales Abd: soft, nontender, +BS x4 Ext: no clubbing/cyanosis. Left elbow erythematous(extending up triceps region)/edematous(improving)/tender & warm to touch. RLE 2+ edema with excoriations Neuro: Alert, no focal deficits, moves all extremities, Skin: warm/dry OBJ DATA Labs CBC & Chem 7: 07/12/22 05:23 07/12/22 05:22 Labs: Abnormal Lab Results 07/12/22 07/12/22 07/11/22 05:23 05:22 08:10 WBC 15.5 H RBC 3.39 L Hgb 10.1 L Hct 32.4 L RDW 16.0 H Immature Gran % (Auto) 0.8 H Neut % (Auto) 86.9 H Lymph % (Auto) 8.1 L Lymph # (Auto) 1.26 L Seg Neutrophils % 85 H Lymphocytes % 2 L Immature Gran # 0.12 H Absolute Neutrophils 13.51 H WBC Morphology Abnormal A Toxic Granulation Many A RBC Morphology Abnormal A Hypochromasia 1+ A Anisocytosis 1+ A ESR 50 H Potassium 3.1 L Chloride Carbon Dioxide 19 L Anion Gap BUN Creatinine Uric Acid Calcium 7.6 L Alkaline Phosphatase Lactate Dehydrogenase C-Reactive Protein 19.80 H Albumin Globulin Albumin/Globulin Ratio 07/11/22 07/11/22 07/10/22 05:38 05:38 18:35 WBC 13.9 H RBC 4.00 L Hgb 12.0 L Hct 37.8 L RDW 15.6 H Immature Gran % (Auto) 0.6 H Neut % (Auto) 88.6 H Lymph % (Auto) 6.3 L Lymph # (Auto) 0.88 L Seg Neutrophils % Lymphocytes % Immature Gran # 0.09 H Absolute Neutrophils 12.27 H WBC Morphology Toxic Granulation RBC Morphology Hypochromasia Anisocytosis ESR Potassium 2.7 L* Chloride Carbon Dioxide 21 L Anion Gap BUN 33 H Creatinine 2.1 H Uric Acid 11.6 H Calcium 7.8 L Alkaline Phosphatase 133 H Lactate Dehydrogenase 261 H C-Reactive Protein 26.10 H Albumin 2.2 L Globulin 4.1 H Albumin/Globulin Ratio 0.5 L 07/10/22 07/10/22 07/10/22 17:00 17:00 17:00 WBC 14.7 H RBC 4.29 L Hgb 12.8 L Hct 38.9 L RDW 15.7 H Immature Gran % (Auto) 1.6 H Neut % (Auto) 83.9 H Lymph % (Auto) 9.2 L Lymph # (Auto) 1.35 L Seg Neutrophils % Lymphocytes % Immature Gran # 0.24 H Absolute Neutrophils 12.35 H WBC Morphology Toxic Granulation RBC Morphology Hypochromasia Anisocytosis ESR 40 H Potassium 2.6 L* Chloride 95 L Carbon Dioxide 21 L Anion Gap 19.0 H BUN 47 H Creatinine 3.4 H Uric Acid Calcium 8.5 L Alkaline Phosphatase 148 H Lactate Dehydrogenase C-Reactive Protein Albumin Globulin 4.3 H Albumin/Globulin Ratio 0.7 L Meds: Medications Acetaminophen (Acetaminophen 325 Mg Tablet) 650 mg PO Q6HP PRN; Protocol PRN Reason: Per Pain Protocol/Fever > 101 Hydrocodone Bitart/Acetaminophen (Hydrocodone/Apap 5/325mg Tablet) 1 tab PO Q4HP PRN PRN Reason: PAIN LEVEL 3-6 Albuterol/Ipratropium (Ipratropium/Albuterol 3 Ml Ampul.Neb) 3 ml NEB Q4HP PRN PRN Reason: Shortness Of Breath Aspirin (Aspirin 81 Mg Tab.Chew) 81 mg PO DAILY [facility] Last Admin: 07/11/22 10:42 Dose: 81 mg Atorvastatin Calcium (Atorvastatin 40 Mg Tablet) 80 mg PO DAILY [facility] Last Admin: 07/11/22 08:35 Dose: 80 mg Docusate Sodium (Docusate Sodium 100 Mg Capsule) 100 mg PO BID [facility] Last Admin: 07/11/22 20:21 Dose: Not Given Enoxaparin Sodium (Enoxaparin 40 Mg/0.4 Ml Syringe) 40 mg SQ DAILY [facility] Last Admin: 07/11/22 08:36 Dose: 40 mg Famotidine (Famotidine 20 Mg Tablet) 20 mg PO QHS [facility] Last Admin: 07/11/22 20:25 Dose: 20 mg Finasteride (Finasteride 5 Mg Tablet) 5 mg PO DAILY [facility] Last Admin: 07/11/22 08:35 Dose: 5 mg Potassium Chloride 40 meq/ (Dextrose) 520 mls @ 130 mls/hr IV UD PRN PRN Reason: Potassium < 3 Last Infusion: 07/11/22 14:59 Dose: Infused Magnesium Sulfate (Magnesium Sulfate) 2 gm in 50 mls @ 50 mls/hr IV UD PRN PRN Reason: Magnesium </= 1.6 Ceftriaxone Sodium 2 gm/ (Dextrose) 50 mls @ 100 mls/hr IV Q24H [facility]; Protocol Last Infusion: 07/11/22 10:24 Dose: Infused CLINDAMYCIN IN 0.9 % SOD CHLOR (Clindamycin 600 Mg/50 Ml-Ns) 600 mg in 50 mls @ 100 mls/hr IV Q8 [facility] Stop: 07/12/22 14:29 Last Infusion: 07/12/22 06:40 Dose: Infused Metoprolol Succinate (Metoprolol Succinate 25 Mg Tab.Xl.24h) 25 mg PO DAILY [facility] Last Admin: 07/11/22 08:35 Dose: 25 mg Metoprolol Tartrate (Metoprolol Tartrate 5 Mg/5 Ml Vial) 5 mg IV Q2HP PRN PRN Reason: Tachyarrhythmias HR>110 Ondansetron HCl (Ondansetron 4 Mg/2 Ml Vial) 4 mg IV Q4HP PRN PRN Reason: Nausea And Vomiting Polyethylene Glycol (Polyethylene Glycol 3350 17 Gm Packet) 17 gm PO DAILYP PRN PRN Reason: Constipation Potassium Chloride (Potassium Chloride 20 Meq Tablet) 40 meq PO UD PRN PRN Reason: Potssium is 3-3.5 Potassium Chloride (Potassium Chloride 20 Meq Tablet) 40 meq PO UD PRN PRN Reason: Potassium < 3 Last Admin: 07/11/22 08:35 Dose: 40 meq Senna (Sennosides 1 Tablet) 2 tab PO DAILYP PRN PRN Reason: Constipation Sodium Chloride (0.9 % Sodium Chloride 10 Ml Syringe) 10 ml IV Q8 [facility] Last Admin: 07/12/22 05:50 Dose: 10 ml A/P Narrative A/P Narrative: A: *Severe sepsis with hypotension: improving -leukocytosis initially improved but worsened today *Left elbow cellulitis/?Septic bursitis & likely RLE cellulitis: -h/o strep pyogenes cellulits *SULEIMAN on possibly CKD(unknown baseline): 2/2 above -improved with IVF *Hypokalemia: *h/o systolic(40-45) CHF: on lasix/acei *RLE edema, acute on chronic: h/o of multiple fractures and vein harvest for cabg *CAD w/cabg: on asa/BB *chronic Afib: only on asa/bb *Carotid Artery Dz: mngmt per PCP *GERD: *BPH w/UR: P: -IV Abx, pending BC, MRSA screen neg -Ortho following -s/p IVF -Monitor and replete electrolytes -monitor uop and f/u renal fxn -elevate right leg and comp wraps -hold acei/norvasc for suleiman and low BP, restart BB -cont statin/asa -PT/OT -CM for placement needs -ppx: Lovenox / home H2 Time Spent With Patient Time: Total time spent is greater than 50% in coordination of care (as documented) at patient's floor/unit and/or counseling patient: Total time spent with greater than 50% in coordination of care (as documented) at patient's floor/unit and/or counseling patient:: 25 - 35 minutes
[2022-07-12] MEDS: FINASTERIDE 5 MG TABLET PO SCH (08:10)
[2022-07-12] MEDS: ENOXAPARIN 40 MG/0.4 ML SYRINGE SQ SCH (08:11)
[2022-07-12] MEDS: DOCUSATE SODIUM 100 MG CAPSULE PO SCH ×2 (08:11→20:04)
[2022-07-12] MEDS: cefTRIAXone 2 GM in DEXTROSE 5% IN WATER 50 ML IV SCH (08:11)
[2022-07-12] MEDS: ATORVASTATIN 40 MG TABLET PO SCH (08:11)
[2022-07-12] MEDS: METOPROLOL SUCCINATE 25 MG TAB.XL.24H PO SCH (08:11)
[2022-07-12] MEDS: ASPIRIN 81 MG TAB.CHEW PO SCH (08:11)
[2022-07-12] MEDS: SODIUM BICARBONATE 650 MG TABLET PO SCH ×3 (08:49→20:04)
[2022-07-12 09:52] LABS: Anisocytosis 1+ (None Seen); Band Neutrophils % 5 % (0-10); Hypochromasia 1+ (None Seen); Lymphocytes % 9 % (15-49); Monocytes % (Manual) 2 % (1-12); Platelet Estimate NORMAL (Normal); RBC Morphology ABNORMAL (Normal); Reactive Lymphocytes 1 % (0-2); Segmented Neutrophils % 83 % (38-78); Toxic Granulation MANY (None Seen)
--- NOTE | 2022-07-12 13:57 | Consultation ---
DATE OF CONSULTATION: 07/12/2022 REASON FOR CONSULTATION: Left olecranon bursitis. DATE OF CONSULTATION: 07/12/2022 CONSULTING PROVIDER: Dr. Watson, Hospitalist [facility]. HISTORY OF PRESENT ILLNESS: The patient is an 81-year-old male who about a week ago or so fell, hitting his elbow. He did not noticed too much swelling at that time. Next morning it was significantly swollen and subsequently became very painful. He also became more weak and was admitted now for about a day or so at the hospital here for IV antibiotics. Upon admission he has significant increase in his white count as well as his CRP. This morning, he reports that the swelling has improved since yesterday and pain is improving as well. Denies any abrasions or bleeding at time of injury. He denies any prior episodes of this to the elbow itself. No numbness or tingling associated with this. PAST MEDICAL HISTORY: He has a history of AFib, congestive heart failure, coronary artery disease with prior CABG. PAST SURGICAL HISTORY: Did not review with him, but he had prior CABG. ALLERGIES: No known drug allergies. HOME MEDICATIONS: Amlodipine, aspirin, furosemide, lisinopril, atorvastatin, amantadine, finasteride, and metoprolol. SOCIAL HISTORY: He is a nontobacco user. He resides here locally. REVIEW OF SYSTEMS: Otherwise, as mentioned above, he had significant weakness for 3 days. Decrease activity associated with this. Otherwise, 10-point review of systems negative. PHYSICAL EXAMINATION: Vital Signs: He is afebrile, temperature 98.7, heart rate is 78, blood pressure 112/64, and saturating 97% on room air. General: He is alert, oriented, interactive, and appropriate. He is hard of hearing with hearing aids in place. He is appropriate. EXTREMITIES: Examination of left upper extremity reveals isolated issue in his left elbow with significant swelling with fluctuance over the olecranon bursa. It does track a bit more proximal of the distal triceps area as well. There is increased warmth here. The area is erythematous. No pain with passive range of motion includes full supination and pronation of the forearm. Hand is warm and well perfused. There are no skin breaks noted. IMAGING: He has imaging of his left elbow, which did not demonstrate any osseous changes associated with this, but does have significant swelling of soft tissue posteriorly. He does have osteophyte anteriorly with some underlying arthritis. LABORATORY DATA: On admission his CRP was 26.10. This morning CRP is 19.8. ESR is 50 this morning. His white count is 15.5 with a left shift with neutrophils 86.9. ASSESSMENT AND PLAN: This is an 81-year-old male who has left elbow septic olecranon bursitis. I did discussed what this is and reviewed it with him this morning. He has been on IV antibiotics. His CRP is decreasing from yesterday. I do think that he is responding to the IV antibiotics and should probably continue this through the day and may transition to oral antibiotics and see if he continues to improve and so could complete 3-week course of oral antibiotics along with compression and immobilization of the elbow. I would like to avoid surgical debridement of this given his skin is very thin and likely will have wound complications. I discussed this with the patient that as long as this improves with antibiotics then my recommendation would be non operative. I will also relayed this to the hospitalist, Dr. Watson. The nurse will likely have to change the IV to the contralateral side. We placed an Misha wrap and a sling for immobilization. I will see the patient tomorrow as well for repeat evaluation. CARINE:mundo Job ID: [id number] Doc ID: [id number] Ashwin Meadows MD [email or web address]
[2022-07-12] MEDS: AMOXICILLIN 250 MG CAPSULE PO SCH ×2 (14:56→20:04)
[2022-07-12] MEDS: FAMOTIDINE 20 MG TABLET PO SCH (20:04)
[2022-07-13] MEDS: 0.9 % SODIUM CHLORIDE 10 ML SYRINGE IV SCH ×3 (05:54→21:20)
[2022-07-13 06:15] LABS: Basophils # (Auto) 0.02 K/mcL (0.00-0.30); Basophils % (Auto) 0.1 % (0.0-2.0); Eosinophils # (Auto) 0.08 K/mcL (0.00-0.70); Eosinophils % (Auto) 0.5 % (0.0-7.0); Hematocrit 32.4 % (40.1-51.0); Hemoglobin 10.5 g/dL (13.7-17.5); Lymphocytes # (Auto) 1.33 K/mcL (1.50-4.80); Lymphocytes % (Auto) 9.1 % (15.5-49.0); Mean Cell Volume 93.4 fL (80.0-100.0); Mean Corpuscular HGB Conc 32.4 g/dL (31.0-36.0); Mean Platelet Volume 9.7 fL (7.4-10.4); Monocytes # (Auto) 0.62 K/mcL (0.10-0.90); Monocytes % (Auto) 4.2 % (1.0-12.0); Neutrophils % (Auto) 85.1 % (38.0-78.0); Platelet Count 210 K/mcL (140-440); RBC 3.47 M/mcL (4.63-6.08); Red Cell Distribution Width 16.3 % (11.5-14.5); WBC 14.6 K/mcL (4.5-11.0)
[2022-07-13 06:50] LABS: Blood Urea Nitrogen 16 mg/dL (8-23); Calcium 8.1 mg/dL (8.6-10.4); Carbon Dioxide 20 mmol/L (22-30); Chloride 106 mmol/L (96-108); Glomerular Filtration Rate 82; Glucose 94 mg/dL (70-105)
--- NOTE | 2022-07-13 07:35 | Internal Med Progress Note ---
SUBJECTIVE Subjective Patient information: Note initiated : 07/13/22 at 7:30 am Service Date, if different from initiated Date: [] Patient: Stas Canela 81 y/o M admitted on 07/10/22 for Stroke Sx/Sepsis. Chief Complaint: [] Interval history: History of present illness: Mr. Canela is a 81 year old M Presents to the ED with weakness and dizziness status progressed over the past 3 days. Patient fell out of the exercise bike about a week ago onto his left elbow. His elbow has become increasingly red swollen and tender. Then about 3 days ago he came severely weak and unable to move around much. He saw his primary care provider today who sent him into the ED. Patient found to have a cellulitis left elbow concern for septic bursitis. He had a leukocytosis of almost 15 with a hypotension and acute kidney injury and hypokalemia. Patient also has a history of A. fib CHF systolic dysfunction CAD with CABG. His right leg was swollen with some excoriations and erythematous. He has had problems with his leg since he multiple fractures on that lower extremity as well as veins taken from and from his CABG. He says his leg becomes red and swollen on occasion but its been worse lately and its painful. He denies fevers chills coughing or shortness of breath. 07/11 Patient arm feels stiff. His elbow may be a little bit less swollen. He says his leg feels better. He says he still very weak. Patient says he does take aspirin every day. 07/12 Patient says he is feeling little better today although his white blood cell count did increase. But he is afebrile. Patient seen by orthopedic surgery this morning. Arm wrapped in Misha wrapped no drainage at this time. Patient states erythema up the arm. Patient states the arm is continuous still operator but less painful and the swelling is starting to improve. 07/13 Patient says arm feels similar to yesterday. Overall feels little bit better as far as pain and swelling. But the erythema is extending up towards his axilla. His elbow area still extremely tender to touch or movement. His white blood cell count is a bit better than yesterday but not any better than when he arrived in the ED. And he developed a fever last night. CRP only minimally better today. ESR is increasing. Review of Systems: denies headache/fever/chills/nausea/vomiting/chest or abdominal pain/dyspnea/diarrhea. Otherwise see above. Constitutional Vitals: Vital Signs Temp Pulse Resp BP Pulse Ox O2 Del Method O2 Flow Rate 99.0 F 95 H 16 114/71 94 1.5 07/13/22 02:44 07/13/22 06:04 07/13/22 06:04 07/13/22 02:44 07/13/22 06:04 07/13/22 06:04 07/13/22 06:04 Period Temp Pulse Resp BP Sys/Harrison Pulse Ox O2 Del Method O2 Flow Rate Last 24 Hr 97.4 F-100.4 F 95-116 16-18 105-126/69-83 90-95 Nasal Cannula- Room Air 1.5-1.5 Intake and Output 07/12/22 07/13/22 07/13/22 21:59 05:59 13:59 Intake Total 50 240 Balance 50 240 Weight 80.399 kg Intake & Output: Intake & Output 07/12/22 07/13/22 07/13/22 21:59 05:59 13:59 Intake Total 50 240 Balance 50 240 Weight 80.399 kg Intake: IV 50 Oral 240 Other: Meal Dinner Percent of Meal Consumed 100% Feeding Ability Independent # Voids 1 Exam: General: Alert, Awake, No acute Distress Eyes/N/T: EOMI, , Head/Neck: neck supple, CV: irreg irreg, No murmurs, Pulm: Clear b/l, no wheezing/rhonchi/rales Abd: soft, nontender, +BS x4 Ext: no clubbing/cyanosis. Left elbow erythematous(extending further, near axilla now)/edematous(improving)/tender & warm to touch. RLE 2+ edema with excoriations/erythema improving Neuro: Alert, no focal deficits, moves all extremities, Skin: warm/dry OBJ DATA Labs CBC & Chem 7: 07/13/22 05:37 07/13/22 05:37 Labs: Abnormal Lab Results 07/13/22 07/13/22 07/13/22 05:37 05:37 05:37 WBC 14.6 H RBC 3.47 L Hgb 10.5 L Hct 32.4 L RDW 16.3 H Immature Gran % (Auto) 1.0 H Neut % (Auto) 85.1 H Lymph % (Auto) 9.1 L Lymph # (Auto) 1.33 L Seg Neutrophils % Lymphocytes % Immature Gran # 0.15 H Absolute Neutrophils 12.41 H WBC Morphology Toxic Granulation RBC Morphology Hypochromasia Anisocytosis ESR 58 H Potassium Chloride Carbon Dioxide 20 L Anion Gap BUN Creatinine Uric Acid Calcium 8.1 L Alkaline Phosphatase Lactate Dehydrogenase C-Reactive Protein 17.70 H Albumin Globulin Albumin/Globulin Ratio 07/12/22 07/12/22 07/12/22 05:23 05:22 05:20 WBC 15.5 H RBC 3.39 L Hgb 10.1 L Hct 32.4 L RDW 16.0 H Immature Gran % (Auto) 0.8 H Neut % (Auto) 86.9 H Lymph % (Auto) 8.1 L Lymph # (Auto) 1.26 L Seg Neutrophils % 83 H Lymphocytes % 9 L Immature Gran # 0.12 H Absolute Neutrophils 13.51 H WBC Morphology Abnormal A Toxic Granulation Many A RBC Morphology Abnormal A Hypochromasia 1+ A Anisocytosis 1+ A ESR 50 H Potassium 3.1 L Chloride Carbon Dioxide 19 L Anion Gap BUN Creatinine Uric Acid Calcium 7.6 L Alkaline Phosphatase Lactate Dehydrogenase C-Reactive Protein 19.80 H Albumin Globulin Albumin/Globulin Ratio 07/11/22 07/11/22 07/11/22 08:10 05:38 05:38 WBC 13.9 H RBC 4.00 L Hgb 12.0 L Hct 37.8 L RDW 15.6 H Immature Gran % (Auto) 0.6 H Neut % (Auto) 88.6 H Lymph % (Auto) 6.3 L Lymph # (Auto) 0.88 L Seg Neutrophils % 85 H Lymphocytes % 2 L Immature Gran # 0.09 H Absolute Neutrophils 12.27 H WBC Morphology Abnormal A Toxic Granulation Many A RBC Morphology Abnormal A Hypochromasia 1+ A Anisocytosis 1+ A ESR Potassium 2.7 L* Chloride Carbon Dioxide 21 L Anion Gap BUN 33 H Creatinine 2.1 H Uric Acid 11.6 H Calcium 7.8 L Alkaline Phosphatase 133 H Lactate Dehydrogenase 261 H C-Reactive Protein Albumin 2.2 L Globulin 4.1 H Albumin/Globulin Ratio 0.5 L 07/10/22 07/10/22 07/10/22 18:35 17:00 17:00 WBC RBC Hgb Hct RDW Immature Gran % (Auto) Neut % (Auto) Lymph % (Auto) Lymph # (Auto) Seg Neutrophils % Lymphocytes % Immature Gran # Absolute Neutrophils WBC Morphology Toxic Granulation RBC Morphology Hypochromasia Anisocytosis ESR 40 H Potassium 2.6 L* Chloride 95 L Carbon Dioxide 21 L Anion Gap 19.0 H BUN 47 H Creatinine 3.4 H Uric Acid Calcium 8.5 L Alkaline Phosphatase 148 H Lactate Dehydrogenase C-Reactive Protein 26.10 H Albumin Globulin 4.3 H Albumin/Globulin Ratio 0.7 L 07/10/22 17:00 WBC 14.7 H RBC 4.29 L Hgb 12.8 L Hct 38.9 L RDW 15.7 H Immature Gran % (Auto) 1.6 H Neut % (Auto) 83.9 H Lymph % (Auto) 9.2 L Lymph # (Auto) 1.35 L Seg Neutrophils % Lymphocytes % Immature Gran # 0.24 H Absolute Neutrophils 12.35 H WBC Morphology Toxic Granulation RBC Morphology Hypochromasia Anisocytosis ESR Potassium Chloride Carbon Dioxide Anion Gap BUN Creatinine Uric Acid Calcium Alkaline Phosphatase Lactate Dehydrogenase C-Reactive Protein Albumin Globulin Albumin/Globulin Ratio Meds: Medications Acetaminophen (Acetaminophen 325 Mg Tablet) 650 mg PO Q6HP PRN; Protocol PRN Reason: Per Pain Protocol/Fever > 101 Last Admin: 07/12/22 20:04 Dose: 650 mg Hydrocodone Bitart/Acetaminophen (Hydrocodone/Apap 5/325mg Tablet) 1 tab PO Q4HP PRN PRN Reason: PAIN LEVEL 3-6 Albuterol/Ipratropium (Ipratropium/Albuterol 3 Ml Ampul.Neb) 3 ml NEB Q4HP PRN PRN Reason: Shortness Of Breath Amoxicillin (Amoxicillin 250 Mg Capsule) 500 mg PO TID [facility]; Protocol Last Admin: 07/12/22 20:04 Dose: 500 mg Aspirin (Aspirin 81 Mg Tab.Chew) 81 mg PO DAILY [facility] Last Admin: 07/12/22 08:11 Dose: 81 mg Atorvastatin Calcium (Atorvastatin 40 Mg Tablet) 80 mg PO DAILY [facility] Last Admin: 07/12/22 08:11 Dose: 80 mg Docusate Sodium (Docusate Sodium 100 Mg Capsule) 100 mg PO BID [facility] Last Admin: 07/12/22 20:04 Dose: 100 mg Enoxaparin Sodium (Enoxaparin 40 Mg/0.4 Ml Syringe) 40 mg SQ DAILY [facility] Last Admin: 07/12/22 08:11 Dose: 40 mg Famotidine (Famotidine 20 Mg Tablet) 20 mg PO QHS [facility] Last Admin: 07/12/22 20:04 Dose: 20 mg Finasteride (Finasteride 5 Mg Tablet) 5 mg PO DAILY [facility] Last Admin: 07/12/22 08:10 Dose: 5 mg Potassium Chloride 40 meq/ (Dextrose) 520 mls @ 130 mls/hr IV UD PRN PRN Reason: Potassium < 3 Last Infusion: 07/11/22 14:59 Dose: Infused Magnesium Sulfate (Magnesium Sulfate) 2 gm in 50 mls @ 50 mls/hr IV UD PRN PRN Reason: Magnesium </= 1.6 Metoprolol Succinate (Metoprolol Succinate 25 Mg Tab.Xl.24h) 25 mg PO DAILY [facility] Last Admin: 07/12/22 08:11 Dose: 25 mg Metoprolol Tartrate (Metoprolol Tartrate 5 Mg/5 Ml Vial) 5 mg IV Q2HP PRN PRN Reason: Tachyarrhythmias HR>110 Ondansetron HCl (Ondansetron 4 Mg/2 Ml Vial) 4 mg IV Q4HP PRN PRN Reason: Nausea And Vomiting Polyethylene Glycol (Polyethylene Glycol 3350 17 Gm Packet) 17 gm PO DAILYP PRN PRN Reason: Constipation Potassium Chloride (Potassium Chloride 20 Meq Tablet) 40 meq PO UD PRN PRN Reason: Potssium is 3-3.5 Last Admin: 07/12/22 08:18 Dose: 40 meq Potassium Chloride (Potassium Chloride 20 Meq Tablet) 40 meq PO UD PRN PRN Reason: Potassium < 3 Last Admin: 07/11/22 08:35 Dose: 40 meq Senna (Sennosides 1 Tablet) 2 tab PO DAILYP PRN PRN Reason: Constipation Sodium Chloride (0.9 % Sodium Chloride 10 Ml Syringe) 10 ml IV Q8 [facility] Last Admin: 07/13/22 05:54 Dose: Not Given A/P Narrative A/P Narrative: A: *Severe sepsis with hypotension(resolved): improving -leukocytosis 14.7>13.9>15.5>14.6 -fever o/n 100.4, tachycardic -ESR increasing *Left elbow cellulitis/Septic bursitis & possibly RLE(improving) cellulitis: -h/o strep pyogenes cellulitis *SULEIMAN on possibly CKD(unknown baseline): 2/2 above -improved with IVF *Hypokalemia: improving *h/o systolic(40-45) CHF: on lasix/acei *RLE edema, acute on chronic: h/o of multiple fractures and vein harvest for cabg *CAD w/cabg: on asa/BB *chronic Afib: only on asa/bb *Carotid Artery Dz: mngmt per PCP *GERD: *BPH w/UR: P: -oral abx per discussion with ortho to determine if will improve on prior to d/c, pending BC, MRSA screen neg -will place back on IV Abx as not seem to responding and developed fever and redness worsened. -Ortho following, may need washout -npo -Monitor and replete electrolytes -monitor uop and f/u renal fxn -elevate right leg and comp wraps -initially held acei/norvasc/lasix for suleiman and low BP, restarted BB -cont statin/asa -PT/OT -CM for placement needs -ppx: Lovenox / home H2 Time Spent With Patient Time: Total time spent is greater than 50% in coordination of care (as documented) at patient's floor/unit and/or counseling patient: Total time spent with greater than 50% in coordination of care (as documented) at patient's floor/unit and/or counseling patient:: 35 - 50 minutes
[2022-07-13] MEDS ORDERED: cefTRIAXone 2 GM VIAL IM SCH (08:45)
[2022-07-13] MEDS: METOPROLOL SUCCINATE 25 MG TAB.XL.24H PO SCH (09:21)
[2022-07-13] MEDS: CLINDAMYCIN IN 0.9 % SOD CHLOR 600 MG/50 ML BAG IV SCH ×3 (09:22→21:16)
[2022-07-13] MEDS: cefTRIAXone 2 GM in DEXTROSE 5% IN WATER 50 ML IV SCH (09:22)
[2022-07-13] MEDS: ASPIRIN 81 MG TAB.CHEW PO SCH (11:46)
[2022-07-13] MEDS: DOCUSATE SODIUM 100 MG CAPSULE PO SCH ×2 (11:46→21:16)
[2022-07-13] MEDS: ATORVASTATIN 40 MG TABLET PO SCH (11:47)
[2022-07-13] MEDS: ENOXAPARIN 40 MG/0.4 ML SYRINGE SQ SCH (11:47)
[2022-07-13] MEDS: FINASTERIDE 5 MG TABLET PO SCH (11:48)
[2022-07-13 15:22] LABS: Appearance,Urine Clear (Clear); Bilirubin,Urine Negative (Negative); Color,Urine Yellow; Culture Indicated,Urine No; Glucose,Urine (UA) Negative (Negative); Ketones,Urine Negative (Negative); Leukocyte Esterase,Urine Negative /uL (Negative); Nitrate,Urine Negative (Negative); Urine Blood Small ery/mcL (Negative); Urine RBC 1 /hpf (0-3); Urine Squamous Epithelial Cell 2 /hpf (0-4); Urine WBC 2 /hpf (0-4); Urobilinogen,Urine Normal
--- NOTE | 2022-07-13 16:04 | Orthopedic Progress Note ---
SUBJECTIVE Subjective Patient information: Note initiated : 07/13/22 at 3:58 pm Service Date, if different from initiated Date: [] Patient: Stas Canela 81 y/o M admitted on 07/10/22 for Stroke Sx/Sepsis. Chief Complaint: [No acute events but notes feels like swelling increased a bit in his hand] Constitutional Vitals: Vital Signs Temp Pulse Resp BP Pulse Ox O2 Del Method O2 Flow Rate 99.8 F H 95 H 20 116/84 93 1.5 07/13/22 12:00 07/13/22 12:00 07/13/22 12:00 07/13/22 12:00 07/13/22 12:00 07/13/22 12:00 07/13/22 07:55 Period Temp Pulse Resp BP Sys/Harrison Pulse Ox O2 Del Method O2 Flow Rate Last 24 Hr 97.4 F-100.4 F 88-116 16-20 105-138/69-88 90-95 Nasal Cannula- Room Air 1.5-1.5 Intake and Output 07/13/22 07/13/22 07/13/22 05:59 13:59 21:59 Intake Total 340 Output Total 220 Balance 340 -220 Intake & Output: Intake & Output 07/13/22 07/13/22 07/13/22 05:59 13:59 21:59 Intake Total 340 Output Total 220 Balance 340 -220 Intake: IV 100 Rocephin 2 gm In Dextrose 5% in 50 Water 50 ml @ 100 mls/hr IV Q24H [facility] Rx#:[id number] Oral 240 Output: Void Amount 220 Other: Meal Breakfast Percent of Meal Consumed 100% Feeding Ability Independent Urine Appearance Clear Urine Color Yellow Urine Odor Normal # Voids 1 Additional findings Additional findings: alert appropriate left elbow: skin intact. fluctuance still notable with increased warmth and erythema. Erythema does track up past yesterday AM. No pain with elbow flexio n/extension. OBJ DATA Labs CBC & Chem 7: 07/13/22 05:37 07/13/22 05:37 Labs: Abnormal Lab Results 07/13/22 07/13/22 07/13/22 14:20 05:37 05:37 WBC RBC Hgb Hct RDW Immature Gran % (Auto) Neut % (Auto) Lymph % (Auto) Lymph # (Auto) Seg Neutrophils % Lymphocytes % Immature Gran # Absolute Neutrophils WBC Morphology Toxic Granulation RBC Morphology Hypochromasia Anisocytosis ESR 58 H Potassium Chloride Carbon Dioxide 20 L Anion Gap BUN Creatinine Uric Acid Calcium 8.1 L Alkaline Phosphatase Lactate Dehydrogenase C-Reactive Protein 17.70 H Albumin Globulin Albumin/Globulin Ratio Urine Protein 100 mg/dl A Urine Occult Blood Small A 07/13/22 07/12/22 07/12/22 05:37 05:23 05:22 WBC 14.6 H 15.5 H RBC 3.47 L 3.39 L Hgb 10.5 L 10.1 L Hct 32.4 L 32.4 L RDW 16.3 H 16.0 H Immature Gran % (Auto) 1.0 H 0.8 H Neut % (Auto) 85.1 H 86.9 H Lymph % (Auto) 9.1 L 8.1 L Lymph # (Auto) 1.33 L 1.26 L Seg Neutrophils % Lymphocytes % Immature Gran # 0.15 H 0.12 H Absolute Neutrophils 12.41 H 13.51 H WBC Morphology Toxic Granulation RBC Morphology Hypochromasia Anisocytosis ESR 50 H Potassium 3.1 L Chloride Carbon Dioxide 19 L Anion Gap BUN Creatinine Uric Acid Calcium 7.6 L Alkaline Phosphatase Lactate Dehydrogenase C-Reactive Protein 19.80 H Albumin Globulin Albumin/Globulin Ratio Urine Protein Urine Occult Blood 07/12/22 07/11/22 07/11/22 05:20 08:10 05:38 WBC RBC Hgb Hct RDW Immature Gran % (Auto) Neut % (Auto) Lymph % (Auto) Lymph # (Auto) Seg Neutrophils % 83 H 85 H Lymphocytes % 9 L 2 L Immature Gran # Absolute Neutrophils WBC Morphology Abnormal A Abnormal A Toxic Granulation Many A Many A RBC Morphology Abnormal A Abnormal A Hypochromasia 1+ A 1+ A Anisocytosis 1+ A 1+ A ESR Potassium 2.7 L* Chloride Carbon Dioxide 21 L Anion Gap BUN 33 H Creatinine 2.1 H Uric Acid 11.6 H Calcium 7.8 L Alkaline Phosphatase 133 H Lactate Dehydrogenase 261 H C-Reactive Protein Albumin 2.2 L Globulin 4.1 H Albumin/Globulin Ratio 0.5 L Urine Protein Urine Occult Blood 07/11/22 07/10/22 07/10/22 05:38 18:35 17:00 WBC 13.9 H RBC 4.00 L Hgb 12.0 L Hct 37.8 L RDW 15.6 H Immature Gran % (Auto) 0.6 H Neut % (Auto) 88.6 H Lymph % (Auto) 6.3 L Lymph # (Auto) 0.88 L Seg Neutrophils % Lymphocytes % Immature Gran # 0.09 H Absolute Neutrophils 12.27 H WBC Morphology Toxic Granulation RBC Morphology Hypochromasia Anisocytosis ESR 40 H Potassium Chloride Carbon Dioxide Anion Gap BUN Creatinine Uric Acid Calcium Alkaline Phosphatase Lactate Dehydrogenase C-Reactive Protein 26.10 H Albumin Globulin Albumin/Globulin Ratio Urine Protein Urine Occult Blood 07/10/22 07/10/22 17:00 17:00 WBC 14.7 H RBC 4.29 L Hgb 12.8 L Hct 38.9 L RDW 15.7 H Immature Gran % (Auto) 1.6 H Neut % (Auto) 83.9 H Lymph % (Auto) 9.2 L Lymph # (Auto) 1.35 L Seg Neutrophils % Lymphocytes % Immature Gran # 0.24 H Absolute Neutrophils 12.35 H WBC Morphology Toxic Granulation RBC Morphology Hypochromasia Anisocytosis ESR Potassium 2.6 L* Chloride 95 L Carbon Dioxide 21 L Anion Gap 19.0 H BUN 47 H Creatinine 3.4 H Uric Acid Calcium 8.5 L Alkaline Phosphatase 148 H Lactate Dehydrogenase C-Reactive Protein Albumin Globulin 4.3 H Albumin/Globulin Ratio 0.7 L Urine Protein Urine Occult Blood Meds: Medications Acetaminophen (Acetaminophen 325 Mg Tablet) 650 mg PO Q6HP PRN; Protocol PRN Reason: Per Pain Protocol/Fever > 101 Last Admin: 07/12/22 20:04 Dose: 650 mg Hydrocodone Bitart/Acetaminophen (Hydrocodone/Apap 5/325mg Tablet) 1 tab PO Q4HP PRN PRN Reason: PAIN LEVEL 3-6 Albuterol/Ipratropium (Ipratropium/Albuterol 3 Ml Ampul.Neb) 3 ml NEB Q4HP PRN PRN Reason: Shortness Of Breath Aspirin (Aspirin 81 Mg Tab.Chew) 81 mg PO DAILY [facility] Last Admin: 07/13/22 11:46 Dose: Not Given Atorvastatin Calcium (Atorvastatin 40 Mg Tablet) 80 mg PO DAILY [facility] Last Admin: 07/13/22 11:47 Dose: Not Given Docusate Sodium (Docusate Sodium 100 Mg Capsule) 100 mg PO BID [facility] Last Admin: 07/13/22 11:46 Dose: Not Given Enoxaparin Sodium (Enoxaparin 40 Mg/0.4 Ml Syringe) 40 mg SQ DAILY [facility] Last Admin: 07/13/22 11:47 Dose: Not Given Famotidine (Famotidine 20 Mg Tablet) 20 mg PO QHS [facility] Last Admin: 07/12/22 20:04 Dose: 20 mg Finasteride (Finasteride 5 Mg Tablet) 5 mg PO DAILY [facility] Last Admin: 07/13/22 11:48 Dose: Not Given Potassium Chloride 40 meq/ (Dextrose) 520 mls @ 130 mls/hr IV UD PRN PRN Reason: Potassium < 3 Last Infusion: 07/11/22 14:59 Dose: Infused Magnesium Sulfate (Magnesium Sulfate) 2 gm in 50 mls @ 50 mls/hr IV UD PRN PRN Reason: Magnesium </= 1.6 CLINDAMYCIN IN 0.9 % SOD CHLOR (Clindamycin 600 Mg/50 Ml-Ns) 600 mg in 50 mls @ 100 mls/hr IV Q8H [facility] Last Admin: 07/13/22 14:29 Dose: 100 mls/hr Ceftriaxone Sodium 2 gm/ (Dextrose) 50 mls @ 100 mls/hr IV Q24H [facility] Last Infusion: 07/13/22 09:55 Dose: Infused Metoprolol Succinate (Metoprolol Succinate 25 Mg Tab.Xl.24h) 25 mg PO DAILY [facility] Last Admin: 07/13/22 09:21 Dose: 25 mg Metoprolol Tartrate (Metoprolol Tartrate 5 Mg/5 Ml Vial) 5 mg IV Q2HP PRN PRN Reason: Tachyarrhythmias HR>110 Ondansetron HCl (Ondansetron 4 Mg/2 Ml Vial) 4 mg IV Q4HP PRN PRN Reason: Nausea And Vomiting Polyethylene Glycol (Polyethylene Glycol 3350 17 Gm Packet) 17 gm PO DAILYP PRN PRN Reason: Constipation Potassium Chloride (Potassium Chloride 20 Meq Tablet) 40 meq PO UD PRN PRN Reason: Potssium is 3-3.5 Last Admin: 07/12/22 08:18 Dose: 40 meq Potassium Chloride (Potassium Chloride 20 Meq Tablet) 40 meq PO UD PRN PRN Reason: Potassium < 3 Last Admin: 07/11/22 08:35 Dose: 40 meq Senna (Sennosides 1 Tablet) 2 tab PO DAILYP PRN PRN Reason: Constipation Sodium Chloride (0.9 % Sodium Chloride 10 Ml Syringe) 10 ml IV Q8 [facility] Last Admin: 07/13/22 14:37 Dose: 10 ml A/P Assessment and plan (1) Bursitis: Assessment and plan: 81 year old male with left elbow septic olecranon bursitis. --- clinically a bit worse today with a borderline temp overnight. CRP is improved. Discussed with Dr. Watson- feel debridement might be the best option. discussed with patient. Patient is ok to proceed with left elbow olecranon bursectomy. Status: Acute Time Spent With Patient Time: Total time spent is greater than 50% in coordination of care (as documented) at patient's floor/unit and/or counseling patient:
[2022-07-13] MEDS ORDERED: ONDANSETRON 4 MG/2 ML VIAL ONE (16:52)
[2022-07-13] MEDS ORDERED: PHENYLephrine 1 MG/10 ML SYRINGE (ANEST) ONE (16:52)
[2022-07-13] MEDS ORDERED: PROPOFOL 200 MG/20 ML VIAL IV ONE (16:52)
[2022-07-13] MEDS ORDERED: GLYCOPYRROLATE 0.2 MG/ML VIAL IV ONE (16:52)
[2022-07-13] MEDS ORDERED: LIDOCAINE HCL/PF 100 MG/5 ML SYRINGE IV ONE (16:52)
[2022-07-13] MEDS ORDERED: fentaNYL 100 MCG/2 ML VIAL IV ONE (16:52)
[2022-07-13] MEDS ORDERED: DEXAMETHASONE 10 MG/ML VIAL ONE (16:52)
[2022-07-13] MEDS ORDERED: MAGNESIUM SULFATE 2 GM/50 ML BAG IV ONE (16:52)
[2022-07-13] MEDS ORDERED: KETAMINE 50 MG/ML Syringe (ANEST) IV ONE (16:52)
[2022-07-13] MEDS ORDERED: ceFAZolin 2 GM in DEXTROSE 5% IN WATER 50 ML IV SCH (17:15)
[2022-07-13] MEDS ORDERED: VANCOMYCIN 1 GM VIAL TOPICAL SCH (17:30)
[2022-07-13] MEDS ORDERED: IPRATROPIUM/ALBUTEROL 3 ML AMPUL.NEB NEB PRN (17:32)
[2022-07-13] MEDS ORDERED: METHOCARBAMOL 1,000 MG/10 ML VIAL IV PRN (17:32)
[2022-07-13] MEDS ORDERED: NALOXONE HCL 0.4 MG/ML VIAL IV PRN (17:32)
[2022-07-13] MEDS ORDERED: ONDANSETRON 4 MG/2 ML VIAL IV PRN (17:32)
[2022-07-13] MEDS ORDERED: fentaNYL 100 MCG/2 ML VIAL IV PRN (17:32)
[2022-07-13] MEDS ORDERED: ACETAMINOPHEN 1,000 MG/100 ML BAG IV ONE (17:32)
[2022-07-13] MEDS ORDERED: LACTATED RINGERS 250 ML IV PRN (17:32)
[2022-07-13] MEDS ORDERED: LACTATED RINGERS 1,000 ML IV SCH ×2 (17:45→20:00)
--- NOTE | 2022-07-13 17:47 | Brief Operative Note ---
Brief Operative Note Date of procedure: 07/13/22 Pre-op diagnosis: left elbow septic bursitis Post-op diagnosis: same Procedure: left septic elbow olecranon bursitis I&D/bursectomy Grafts/Implants: No Anesthesia: GETA Findings: aston purulence Complications: none Surgeon: Ashwin Meadows Diversional Therapist: Roderick Ames Estimated blood loss (cc): 2 Tourniquet Time (Minutes): 40 Specimens Removed/Pathology: none sent Condition: stable Disposition: PACU
[2022-07-13] MEDS ORDERED: oxyCODONE HCL 5 MG TABLET PO PRN (17:54)
--- NOTE | 2022-07-13 19:30 | EKG ---
[facility] Test Date: 2022-07-10 Pat Name: Stas Canela Department: ED Room: Gender: Male Beck Tender: JULIA : 1940 Requested By: Rinku Watson Order Number: [id number] Reading MD: Collins Neil Measurements Intervals [place] Rate: 81 P: [place]: QRS: -60 QRSD: 108 T: 23 QT: 397 QTc: 461 Interpretive Statements Atrial fibrillation Ventricular premature complex Low voltage, extremity leads Minimal ST elevation, lateral leads Electronically Signed On 07-13-2022 19:29:49 PDT by Collins Neil /[id number]
[2022-07-13] MEDS: FAMOTIDINE 20 MG TABLET PO SCH (21:15)
[2022-07-14] MEDS: CLINDAMYCIN IN 0.9 % SOD CHLOR 600 MG/50 ML BAG IV SCH ×3 (05:15→21:54)
[2022-07-14] MEDS: 0.9 % SODIUM CHLORIDE 10 ML SYRINGE IV SCH ×3 (05:17→21:54)
[2022-07-14 06:54] LABS: Hematocrit 36.4 % (40.1-51.0); Hemoglobin 11.2 g/dL (13.7-17.5); Mean Cell Volume 97.3 fL (80.0-100.0); Mean Corpuscular HGB Conc 30.8 g/dL (31.0-36.0); Mean Platelet Volume 9.7 fL (7.4-10.4); Platelet Count 191 K/mcL (140-440); RBC 3.74 M/mcL (4.63-6.08); Red Cell Distribution Width 16.3 % (11.5-14.5); WBC 13.9 K/mcL (4.5-11.0)
[2022-07-14 06:58] LABS: ALT/SGPT 11 U/L (<40); AST/SGOT 23 U/L (<40); Albumin/Globulin Ratio 0.5 (1.0-2.3); Alkaline Phosphatase 136 U/L (39-117); Bilirubin,Direct < 0.2 mg/dL (0-0.3); Bilirubin,Total 0.3 mg/dL (0.1-1.0); Blood Urea Nitrogen 17 mg/dL (8-23); Calcium 8.4 mg/dL (8.6-10.4); Carbon Dioxide 21 mmol/L (22-30); Chloride 106 mmol/L (96-108); Globulin 4.4 gm/dL (2.2-3.7); Glomerular Filtration Rate 82; Glucose 126 mg/dL (70-105); Lactate Dehydrogenase 243 U/L (135-225); Phosphorous 3.6 mg/dL (2.5-4.5); Triglycerides 70 mg/dL (<150); Uric Acid 5.3 mg/dL (2.5-8.0)
--- NOTE | 2022-07-14 07:16 | Orthopedic Progress Note ---
SUBJECTIVE Subjective Patient information: Note initiated : 07/14/22 at 7:09 am Service Date, if different from initiated Date: [] Patient: Stas Canela 81 y/o M admitted on 07/10/22 for Stroke Sx/Sepsis. Chief Complaint: [] Interval history: POD 1 s/p left elbow I&D, patient is doing well this morning and his pain is well contolled. He denies any CP, STOKES, nausea, vomiting, or any other acute symptoms Constitutional Vitals: Vital Signs Temp Pulse Resp BP Pulse Ox O2 Del Method O2 Flow Rate 97.3 F 90 18 113/75 95 1 07/14/22 06:43 07/14/22 06:43 07/14/22 06:43 07/14/22 06:43 07/14/22 06:43 07/14/22 06:43 07/14/22 06:43 Period Temp Pulse Resp BP Sys/Harrison Pulse Ox O2 Del Method O2 Flow Rate Last 24 Hr 97.2 F-99.8 F 88-125 10-23 91-138/56-88 78-96 Nasal Cannula- Simple Mask 0-6 Intake and Output 07/13/22 07/14/22 07/14/22 21:59 05:59 13:59 Intake Total 250 550 Output Total 220 2650 Balance 30 -2100 Weight 180 lb 14.4 oz Intake & Output: Intake & Output 07/13/22 07/14/22 07/14/22 21:59 05:59 13:59 Intake Total 250 550 Output Total 220 2650 Balance 30 -2100 Weight 180 lb 14.4 oz Intake: IV 250 Ancef 2 gm In Dextrose 5% in 50 Water 50 ml @ 100 mls/hr IV PREOP [facility] Rx#:[id number] Oral 550 Output: Drainage 0 Left Elbow Woundvac 0 Urine Catheter Amount 2500 Void Amount 220 150 Other: Urine Appearance Clear Clear Urine Color Yellow Dark Nikole Urine Odor Normal Additional findings Additional findings: exam of the right knee reveals improved swelling but continued redness with a couple of old abrasions over the anterior aspect of the knee, small quarter sized area of fluctuance over the anterior patella, no calf tenderness. exam of the left elbow reveals a splint in place, wound vac is in place and working without any drainage, patient is NVI in the LUE, no redness streaking above the splint or outside boundaries from yesterday. OBJ DATA Labs CBC & Chem 7: 07/14/22 05:16 07/14/22 05:16 Labs: Abnormal Lab Results 07/14/22 07/14/22 07/13/22 05:16 05:16 14:20 WBC 13.9 H RBC 3.74 L Hgb 11.2 L Hct 36.4 L MCHC 30.8 L RDW 16.3 H Immature Gran % (Auto) Neut % (Auto) Lymph % (Auto) Lymph # (Auto) Seg Neutrophils % Lymphocytes % Immature Gran # Absolute Neutrophils WBC Morphology Toxic Granulation RBC Morphology Hypochromasia Anisocytosis ESR Potassium Carbon Dioxide 21 L BUN Creatinine Glucose 126 H Uric Acid Calcium 8.4 L Magnesium 2.6 H Alkaline Phosphatase 136 H Lactate Dehydrogenase 243 H C-Reactive Protein 14.30 H Albumin 2.0 L Globulin 4.4 H Albumin/Globulin Ratio 0.5 L Urine Protein 100 mg/dl A Urine Occult Blood Small A 07/13/22 07/13/22 07/13/22 05:37 05:37 05:37 WBC 14.6 H RBC 3.47 L Hgb 10.5 L Hct 32.4 L MCHC RDW 16.3 H Immature Gran % (Auto) 1.0 H Neut % (Auto) 85.1 H Lymph % (Auto) 9.1 L Lymph # (Auto) 1.33 L Seg Neutrophils % Lymphocytes % Immature Gran # 0.15 H Absolute Neutrophils 12.41 H WBC Morphology Toxic Granulation RBC Morphology Hypochromasia Anisocytosis ESR 58 H Potassium Carbon Dioxide 20 L BUN Creatinine Glucose Uric Acid Calcium 8.1 L Magnesium Alkaline Phosphatase Lactate Dehydrogenase C-Reactive Protein 17.70 H Albumin Globulin Albumin/Globulin Ratio Urine Protein Urine Occult Blood 07/12/22 07/12/22 07/12/22 05:23 05:22 05:20 WBC 15.5 H RBC 3.39 L Hgb 10.1 L Hct 32.4 L MCHC RDW 16.0 H Immature Gran % (Auto) 0.8 H Neut % (Auto) 86.9 H Lymph % (Auto) 8.1 L Lymph # (Auto) 1.26 L Seg Neutrophils % 83 H Lymphocytes % 9 L Immature Gran # 0.12 H Absolute Neutrophils 13.51 H WBC Morphology Abnormal A Toxic Granulation Many A RBC Morphology Abnormal A Hypochromasia 1+ A Anisocytosis 1+ A ESR 50 H Potassium 3.1 L Carbon Dioxide 19 L BUN Creatinine Glucose Uric Acid Calcium 7.6 L Magnesium Alkaline Phosphatase Lactate Dehydrogenase C-Reactive Protein 19.80 H Albumin Globulin Albumin/Globulin Ratio Urine Protein Urine Occult Blood 07/11/22 07/11/22 08:10 05:38 WBC RBC Hgb Hct MCHC RDW Immature Gran % (Auto) Neut % (Auto) Lymph % (Auto) Lymph # (Auto) Seg Neutrophils % 85 H Lymphocytes % 2 L Immature Gran # Absolute Neutrophils WBC Morphology Abnormal A Toxic Granulation Many A RBC Morphology Abnormal A Hypochromasia 1+ A Anisocytosis 1+ A ESR Potassium 2.7 L* Carbon Dioxide 21 L BUN 33 H Creatinine 2.1 H Glucose Uric Acid 11.6 H Calcium 7.8 L Magnesium Alkaline Phosphatase 133 H Lactate Dehydrogenase 261 H C-Reactive Protein Albumin 2.2 L Globulin 4.1 H Albumin/Globulin Ratio 0.5 L Urine Protein Urine Occult Blood Meds: Medications Acetaminophen (Acetaminophen 325 Mg Tablet) 650 mg PO Q6HP PRN; Protocol PRN Reason: Per Pain Protocol/Fever > 101 Last Admin: 07/12/22 20:04 Dose: 650 mg Hydrocodone Bitart/Acetaminophen (Hydrocodone/Apap 5/325mg Tablet) 1 tab PO Q4H P PRN PRN Reason: PAIN LEVEL 3-6 Albuterol/Ipratropium (Ipratropium/Albuterol 3 Ml Ampul.Neb) 3 ml NEB Q4HP PRN PRN Reason: Shortness Of Breath Aspirin (Aspirin 81 Mg Tab.Chew) 81 mg PO DAILY [facility] Last Admin: 07/13/22 11:46 Dose: Not Given Atorvastatin Calcium (Atorvastatin 40 Mg Tablet) 80 mg PO DAILY [facility] Last Admin: 07/13/22 11:47 Dose: Not Given Docusate Sodium (Docusate Sodium 100 Mg Capsule) 100 mg PO BID [facility] Last Admin: 07/13/22 21:16 Dose: 100 mg Enoxaparin Sodium (Enoxaparin 40 Mg/0.4 Ml Syringe) 40 mg SQ DAILY [facility] Last Admin: 07/13/22 11:47 Dose: Not Given Famotidine (Famotidine 20 Mg Tablet) 20 mg PO QHS [facility] Last Admin: 07/13/22 21:15 Dose: 20 mg Finasteride (Finasteride 5 Mg Tablet) 5 mg PO DAILY [facility] Last Admin: 07/13/22 11:48 Dose: Not Given Potassium Chloride 40 meq/ (Dextrose) 520 mls @ 130 mls/hr IV UD PRN PRN Reason: Potassium < 3 Last Infusion: 07/11/22 14:59 Dose: Infused Magnesium Sulfate (Magnesium Sulfate) 2 gm in 50 mls @ 50 mls/hr IV UD PRN PRN Reason: Magnesium </= 1.6 CLINDAMYCIN IN 0.9 % SOD CHLOR (Clindamycin 600 Mg/50 Ml-Ns) 600 mg in 50 mls @ 100 mls/hr IV Q8H [facility] Last Admin: 07/14/22 05:15 Dose: 100 mls/hr Ceftriaxone Sodium 2 gm/ (Dextrose) 50 mls @ 100 mls/hr IV Q24H [facility] Last Infusion: 07/13/22 09:55 Dose: Infused Lactated Ringer's (Lactated Ringers) 1,000 mls @ 50 mls/hr IV .Q20H [facility] Last Admin: 07/13/22 19:15 Dose: 50 mls/hr Metoprolol Succinate (Metoprolol Succinate 25 Mg Tab.Xl.24h) 25 mg PO DAILY [facility] Last Admin: 07/13/22 09:21 Dose: 25 mg Metoprolol Tartrate (Metoprolol Tartrate 5 Mg/5 Ml Vial) 5 mg IV Q2HP PRN PRN Reason: Tachyarrhythmias HR>110 Ondansetron HCl (Ondansetron 4 Mg/2 Ml Vial) 4 mg IV Q4HP PRN PRN Reason: Nausea And Vomiting Oxycodone HCl (Oxycodone Hcl 5 Mg Tablet) 5 mg PO Q4-6HP PRN; Protocol PRN Reason: Per Pain Protocol Polyethylene Glycol (Polyethylene Glycol 3350 17 Gm Packet) 17 gm PO DAILYP PRN PRN Reason: Constipation Potassium Chloride (Potassium Chloride 20 Meq Tablet) 40 meq PO UD PRN PRN Reason: Potssium is 3-3.5 Last Admin: 07/12/22 08:18 Dose: 40 meq Potassium Chloride (Potassium Chloride 20 Meq Tablet) 40 meq PO UD PRN PRN Reason: Potassium < 3 Last Admin: 07/11/22 08:35 Dose: 40 meq Senna (Sennosides 1 Tablet) 2 tab PO DAILYP PRN PRN Reason: Constipation Sodium Chloride (0.9 % Sodium Chloride 10 Ml Syringe) 10 ml IV Q8 [facility] Last Admin: 07/14/22 05:17 Dose: 10 ml A/P Assessment and plan (1) Cellulitis: Status: Acute (2) Septic bursitis of elbow: Assessment and plan: POD 1 s/p left elbow I&D 1. continue antibiotics per hospitalist 2. leave splint in place until POD2 3. Continue wound vac until POD 7 4. Continue compression with the anne bandage for the RLE, monitor fluctuance and cellulitis 5. Discharge per hospitalist Status: Acute Time Spent With Patient Time: Total time spent is greater than 50% in coordination of care (as documented) at patient's floor/unit and/or counseling patient:
[2022-07-14] MEDS ORDERED: FUROSEMIDE 40 MG/4 ML VIAL IV ONE (07:30)
[2022-07-14] MEDS ORDERED: ALBUMIN HUMAN 12.5 GM/50 ML BAG IV ONE (07:30)
--- NOTE | 2022-07-14 07:33 | Internal Med Progress Note ---
SUBJECTIVE Subjective Patient information: Note initiated : 07/14/22 at 7:27 am Service Date, if different from initiated Date: [] Patient: Stas Canela 81 y/o M admitted on 07/10/22 for Stroke Sx/Sepsis. Chief Complaint: [] Interval history: History of present illness: Mr. Canela is a 81 year old M Presents to the ED with weakness and dizziness status progressed over the past 3 days. Patient fell out of the exercise bike about a week ago onto his left elbow. His elbow has become increasingly red swollen and tender. Then about 3 days ago he came severely weak and unable to move around much. He saw his primary care provider today who sent him into the ED. Patient found to have a cellulitis left elbow concern for septic bursitis. He had a leukocytosis of almost 15 with a hypotension and acute kidney injury and hypokalemia. Patient also has a history of A. fib CHF systolic dysfunction CAD with CABG. His right leg was swollen with some excoriations and erythematous. He has had problems with his leg since he multiple fractures on that lower extremity as well as veins taken from and from his CABG. He says his leg becomes red and swollen on occasion but its been worse lately and its painful. He denies fevers chills coughing or shortness of breath. 07/11 Patient arm feels stiff. His elbow may be a little bit less swollen. He says his leg feels better. He says he still very weak. Patient says he does take aspirin every day. 07/12 Patient says he is feeling little better today although his white blood cell count did increase. But he is afebrile. Patient seen by orthopedic surgery this morning. Arm wrapped in Misha wrapped no drainage at this time. Patient states erythema up the arm. Patient states the arm is molding machine tender but less painful and the swelling is starting to improve. 07/13 Patient says arm feels similar to yesterday. Overall feels little bit better as far as pain and swelling. But the erythema is extending up towards his axilla. His elbow area still extremely tender to touch or movement. His white blood cell count is a bit better than yesterday but not any better than when he arrived in the ED. And he developed a fever last night. CRP only minimally better today. ESR is increasing. 07/14 Status post washout yesterday afternoon. Patient feels better today. Leukocytosis gradually improving. CRP improving. Waiting I&D cultures. Review of Systems: denies headache/fever/chills/nausea/vomiting/chest or abdominal pain/dyspnea/diarrhea. Otherwise see above. Constitutional Vitals: Vital Signs Temp Pulse Resp BP Pulse Ox O2 Del Method O2 Flow Rate 97.3 F 90 18 113/75 95 1 07/14/22 06:43 07/14/22 06:43 07/14/22 06:43 07/14/22 06:43 07/14/22 06:43 07/14/22 06:43 07/14/22 06:43 Period Temp Pulse Resp BP Sys/Harrison Pulse Ox O2 Del Method O2 Flow Rate Last 24 Hr 97.2 F-99.8 F 88-125 10-23 91-138/56-88 78-96 Nasal Cannula-S imple Mask 0-6 Intake and Output 07/13/22 07/14/22 07/14/22 21:59 05:59 13:59 Intake Total 250 550 Output Total 220 2650 Balance 30 -2100 Weight 82.055 kg Intake & Output: Intake & Output 07/13/22 07/14/22 07/14/22 21:59 05:59 13:59 Intake Total 250 550 Output Total 220 2650 Balance 30 -2100 Weight 82.055 kg Intake: IV 250 Ancef 2 gm In Dextrose 5% in 50 Water 50 ml @ 100 mls/hr IV PREOP [facility] Rx#:[id number] Oral 550 Output: Drainage 0 Left Elbow Woundvac 0 Urine Catheter Amount 2500 Void Amount 220 150 Other: Urine Appearance Clear Clear Urine Color Yellow Dark Nikole Urine Odor Normal Exam: General: Alert, Awake, No acute Distress Eyes/N/T: EOMI, , Head/Neck: neck supple, CV: irreg irreg, No murmurs, Pulm: Clear b/l, no wheezing/rhonchi/rales Abd: soft, nontender, +BS x4 Ext: no clubbing/cyanosis. Left elbow erythematous(extending further, near axilla now)/edematous(improving)/tender & warm to touch. RLE 2+ edema with excoriations/erythema improving Neuro: Alert, no focal deficits, moves all extremities, Skin: warm/dry OBJ DATA Labs CBC & Chem 7: 07/14/22 05:16 07/14/22 05:16 Labs: Abnormal Lab Results 07/14/22 07/14/22 07/13/22 05:16 05:16 14:20 WBC 13.9 H RBC 3.74 L Hgb 11.2 L Hct 36.4 L MCHC 30.8 L RDW 16.3 H Immature Gran % (Auto) Neut % (Auto) Lymph % (Auto) Lymph # (Auto) Seg Neutrophils % Lymphocytes % Immature Gran # Absolute Neutrophils WBC Morphology Toxic Granulation RBC Morphology Hypochromasia Anisocytosis ESR Potassium Carbon Dioxide 21 L BUN Creatinine Glucose 126 H Uric Acid Calcium 8.4 L Magnesium 2.6 H Alkaline Phosphatase 136 H Lactate Dehydrogenase 243 H C-Reactive Protein 14.30 H Albumin 2.0 L Globulin 4.4 H Albumin/Globulin Ratio 0.5 L Urine Protein 100 mg/dl A Urine Occult Blood Small A 07/13/22 07/13/22 07/13/22 05:37 05:37 05:37 WBC 14.6 H RBC 3.47 L Hgb 10.5 L Hct 32.4 L MCHC RDW 16.3 H Immature Gran % (Auto) 1.0 H Neut % (Auto) 85.1 H Lymph % (Auto) 9.1 L Lymph # (Auto) 1.33 L Seg Neutrophils % Lymphocytes % Immature Gran # 0.15 H Absolute Neutrophils 12.41 H WBC Morphology Toxic Granulation RBC Morphology Hypochromasia Anisocytosis ESR 58 H Potassium Carbon Dioxide 20 L BUN Creatinine Glucose Uric Acid Calcium 8.1 L Magnesium Alkaline Phosphatase Lactate Dehydrogenase C-Reactive Protein 17.70 H Albumin Globulin Albumin/Globulin Ratio Urine Protein Urine Occult Blood 07/12/22 07/12/22 07/12/22 05:23 05:22 05:20 WBC 15.5 H RBC 3.39 L Hgb 10.1 L Hct 32.4 L MCHC RDW 16.0 H Immature Gran % (Auto) 0.8 H Neut % (Auto) 86.9 H Lymph % (Auto) 8.1 L Lymph # (Auto) 1.26 L Seg Neutrophils % 83 H Lymphocytes % 9 L Immature Gran # 0.12 H Absolute Neutrophils 13.51 H WBC Morphology Abnormal A Toxic Granulation Many A RBC Morphology Abnormal A Hypochromasia 1+ A Anisocytosis 1+ A ESR 50 H Potassium 3.1 L Carbon Dioxide 19 L BUN Creatinine Glucose Uric Acid Calcium 7.6 L Magnesium Alkaline Phosphatase Lactate Dehydrogenase C-Reactive Protein 19.80 H Albumin Globulin Albumin/Globulin Ratio Urine Protein Urine Occult Blood 07/11/22 07/11/22 08:10 05:38 WBC RBC Hgb Hct MCHC RDW Immature Gran % (Auto) Neut % (Auto) Lymph % (Auto) Lymph # (Auto) Seg Neutrophils % 85 H Lymphocytes % 2 L Immature Gran # Absolute Neutrophils WBC Morphology Abnormal A Toxic Granulation Many A RBC Morphology Abnormal A Hypochromasia 1+ A Anisocytosis 1+ A ESR Potassium 2.7 L* Carbon Dioxide 21 L BUN 33 H Creatinine 2.1 H Glucose Uric Acid 11.6 H Calcium 7.8 L Magnesium Alkaline Phosphatase 133 H Lactate Dehydrogenase 261 H C-Reactive Protein Albumin 2.2 L Globulin 4.1 H Albumin/Globulin Ratio 0.5 L Urine Protein Urine Occult Blood Meds: Medications Acetaminophen (Acetaminophen 325 Mg Tablet) 650 mg PO Q6HP PRN; Protocol PRN Reason: Per Pain Protocol/Fever > 101 Last Admin: 07/12/22 20:04 Dose: 650 mg Hydrocodone Bitart/Acetaminophen (Hydrocodone/Apap 5/325mg Tablet) 1 tab PO Q4HP PRN PRN Reason: PAIN LEVEL 3-6 Albuterol/Ipratropium (Ipratropium/Albuterol 3 Ml Ampul.Neb) 3 ml NEB Q4HP PRN PRN Reason: Shortness Of Breath Aspirin (Aspirin 81 Mg Tab.Chew) 81 mg PO DAILY [facility] Last Admin: 07/13/22 11:46 Dose: Not Given Atorvastatin Calcium (Atorvastatin 40 Mg Tablet) 80 mg PO DAILY [facility] Last Admin: 07/13/22 11:47 Dose: Not Given Docusate Sodium (Docusate Sodium 100 Mg Capsule) 100 mg PO BID [facility] Last Admin: 07/13/22 21:16 Dose: 100 mg Enoxaparin Sodium (Enoxaparin 40 Mg/0.4 Ml Syringe) 40 mg SQ DAILY [facility] Last Admin: 07/13/22 11:47 Dose: Not Given Famotidine (Famotidine 20 Mg Tablet) 20 mg PO QHS [facility] Last Admin: 07/13/22 21:15 Dose: 20 mg Finasteride (Finasteride 5 Mg Tablet) 5 mg PO DAILY [facility] Last Admin: 07/13/22 11:48 Dose: Not Given Potassium Chloride 40 meq/ (Dextrose) 520 mls @ 130 mls/hr IV UD PRN PRN Reason: Potassium < 3 Last Infusion: 07/11/22 14:59 Dose: Infused Magnesium Sulfate (Magnesium Sulfate) 2 gm in 50 mls @ 50 mls/hr IV UD PRN PRN Reason: Magnesium </= 1.6 CLINDAMYCIN IN 0.9 % SOD CHLOR (Clindamycin 600 Mg/50 Ml-Ns) 600 mg in 50 mls @ 100 mls/hr IV Q8H [facility] Last Admin: 07/14/22 05:15 Dose: 100 mls/hr Ceftriaxone Sodium 2 gm/ (Dextrose) 50 mls @ 100 mls/hr IV Q24H [facility] Last Infusion: 07/13/22 09:55 Dose: Infused Lactated Ringer's (Lactated Ringers) 1,000 mls @ 50 mls/hr IV .Q20H [facility] Last Admin: 07/13/22 19:15 Dose: 50 mls/hr Metoprolol Succinate (Metoprolol Succinate 25 Mg Tab.Xl.24h) 25 mg PO DAILY [facility] Last Admin: 07/13/22 09:21 Dose: 25 mg Metoprolol Tartrate (Metoprolol Tartrate 5 Mg/5 Ml Vial) 5 mg IV Q2HP PRN PRN Reason: Tachyarrhythmias HR>110 Ondansetron HCl (Ondansetron 4 Mg/2 Ml Vial) 4 mg IV Q4HP PRN PRN Reason: Nausea And Vomiting Oxycodone HCl (Oxycodone Hcl 5 Mg Tablet) 5 mg PO Q4-6HP PRN; Protocol PRN Reason: Per Pain Protocol Polyethylene Glycol (Polyethylene Glycol 3350 17 Gm Packet) 17 gm PO DAILYP PRN PRN Reason: Constipation Potassium Chloride (Potassium Chloride 20 Meq Tablet) 40 meq PO UD PRN PRN Reason: Potssium is 3-3.5 Last Admin: 07/12/22 08:18 Dose: 40 meq Potassium Chloride (Potassium Chloride 20 Meq Tablet) 40 meq PO UD PRN PRN Reason: Potassium < 3 Last Admin: 07/11/22 08:35 Dose: 40 meq Senna (Sennosides 1 Tablet) 2 tab PO DAILYP PRN PRN Reason: Constipation Sodium Chloride (0.9 % Sodium Chloride 10 Ml Syringe) 10 ml IV Q8 [facility] Last Admin: 07/14/22 05:17 Dose: 10 ml A/P Narrative A/P Narrative: A: *Severe sepsis with hypotension(resolved): improving -leukocytosis slowly improving -afebrile o/n, -CRP gradually decreasing *Left elbow cellulitis/Septic bursitis & possibly RLE(improving) cellulitis: s/p I&D w/bursectomy (07/14) -h/o strep pyogenes cellulitis *SULEIMAN on possibly CKD(unknown baseline): 2/2 above -improved with IVF *Hypokalemia: improved *h/o systolic(40-45) CHF: on lasix/acei *RLE edema, acute on chronic: h/o of multiple fractures and vein harvest for cabg *CAD w/cabg: on asa/BB *chronic Afib: only on asa/bb *Carotid Artery Dz: mngmt per PCP *GERD: *BPH w/UR: P: -abx, pending I&D cxs -Ortho following -Monitor and replete electrolytes -monitor uop and f/u renal fxn -elevate right leg and comp wraps -initially held acei/norvasc/lasix for suleiman and low BP, restarted BB/lasix -cont statin/asa -PT/OT -CM for placement needs -ppx: Lovenox / home H2 Time Spent With Patient Time: Total time spent is greater than 50% in coordination of care (as documented) at patient's floor/unit and/or counseling patient: Total time spent with greater than 50% in coordination of care (as documented) at patient's floor/unit and/or counseling patient:: 25 - 35 minutes
--- NOTE | 2022-07-14 07:47 | Operative Note ---
DATE OF OPERATION: 07/13/2022 DATE OF PROCEDURE: 07/13/2022 PREOPERATIVE DIAGNOSIS: Left septic olecranon bursitis. POSTOPERATIVE DIAGNOSIS: Left septic olecranon bursitis. PROCEDURE PERFORMED: 1. Excision of left septic olecranon bursa. 2. Application of an incisional wound VAC. SURGEON: Ashwin Meadows M.D. MARKETING AUTOMATION MANAGER: Roderick Ames PA-C. This provider's expertise and technical skill were required throughout the case. The PA assisted with preoperative coordination, intraoperative retraction, wound closure, and dressing and splint application, as well as postoperative documentation and care coordination. ANESTHESIA: General. INTRAVENOUS FLUIDS: 500 mL lactated Ringer's. ESTIMATED BLOOD LOSS: Minimal. TOURNIQUET TIME: 40 minutes at 200 mmHg. ANTIBIOTICS: 2 grams Ancef. INTRAOPERATIVE COMPLICATIONS: None apparent. PATHOLOGY/LAB: Culture x1. OPERATIVE FINDINGS: Aston purulence of the olecranon bursa past the triceps tendon to the mid to distal third of the arm and sharply at the distal bursa. INDICATIONS FOR PROCEDURE: The patient is an 81-year-old male who presented now 2-1/2 to 3 days ago with some weakness as well as increased white count with cellulitis of the lower extremities as well as warm, swollen left elbow with concern for septic olecranon bursitis. Since that time, he has been treated with IV antibiotics and failed to continue to improve clinically. Given that, I discussed options to include excision of the bursa with irrigation and debridement, discussed what this entails, the risks and benefits of the surgery. He understands and wished to proceed in that fashion. DESCRIPTION OF PROCEDURE: Patient was met in the preoperative holding area where site was verified and marked with the patient's input. He was taken to the operating room where he underwent successful general anesthesia and was placed in the lateral position with the right side down, with axillary roll and a beanbag. The left upper extremity had a well-padded tourniquet placed about the proximal arm and was prepped and draped in the usual sterile fashion with ChloraPrep. Surgical timeout was performed to verify identity, correct procedure being performed, and correct extremity being operated on. Everybody was in agreement. [place] exsanguination was utilized and tourniquet was inflated to 200 mmHg. I made a curvilinear incision from apex radially. Skin was sharply incised and then attempted to stay outside the bursal sac; however, did encounter aston purulence, which was evacuated from this and thus did culture . We continued to work proximally to circumferentially around the bursa sac. This did penetrate the bursal sac proximally and tracked just overlying the distal third of the triceps as well. This was all excised sharply and then the bursa was elevated sharply off of the olecranon and down to the distal aspect of the bursal sac. This was all excised. Once the bursawas removed and we ensured that all of the aston pus was removed and irrigated, we curetted the soft tissue thoroughly throughout the elbow region, did use IrriSept as well and then irrigated again with a total of 4-5 liters of irrigation. At this point, I did place 1 gram vancomycin powder deep in the wound and did tack down multiple spots through the subdermal to the fascia overlying the muscle and the periosteum with 3-0 Vicryl to tack on the space and then the wound was closed with a 3-0 Vicryl and skin closed with nylon in running fashion. The arm was then cleaned and dried. I then placed an incisional wound VAC along the AV compression dressing with a posterior splint. I failed to mention after we formally irrigated the initial set, we did create a semi-clean field, changed gloves and all instruments were placed on different Velez. The patient awoke from anesthesia and transferred to PACU in stable condition. POSTOPERATIVE PLAN: The patient will be admitted for IV antibiotics and likely transition to oral antibiotics to ensure he continues to do well and trend labs. DLW:tre Job ID: [id number] Doc ID: [id number] Ashwin Meadows MD [facility]
[2022-07-14 07:59] LABS: Anisocytosis 1+ (None Seen); Band Neutrophils % 1 % (0-10); Lymphocytes % 8 % (15-49); Platelet Estimate NORMAL (Normal); RBC Morphology ABNORMAL (Normal); Segmented Neutrophils % 91 % (38-78)
[2022-07-14] MEDS: ATORVASTATIN 40 MG TABLET PO SCH (08:13)
[2022-07-14] MEDS: FINASTERIDE 5 MG TABLET PO SCH (08:13)
[2022-07-14] MEDS: ASPIRIN 81 MG TAB.CHEW PO SCH (08:13)
[2022-07-14] MEDS: METOPROLOL SUCCINATE 25 MG TAB.XL.24H PO SCH (08:14)
[2022-07-14] MEDS: ENOXAPARIN 40 MG/0.4 ML SYRINGE SQ SCH (08:14)
[2022-07-14] MEDS: DOCUSATE SODIUM 100 MG CAPSULE PO SCH ×2 (08:14→21:54)
[2022-07-14] MEDS: FUROSEMIDE 20 MG TABLET PO SCH (08:14)
[2022-07-14] MEDS: cefTRIAXone 2 GM in DEXTROSE 5% IN WATER 50 ML IV SCH (08:15)
--- NOTE | 2022-07-14 12:13 | Internal Med Progress Note ---
SUBJECTIVE Subjective Patient information: Note initiated : 07/14/22 at 12:11 pm Service Date, if different from initiated Date: [] Patient: Stas Canela 81 y/o M admitted on 07/10/22 for Stroke Sx/Sepsis. Chief Complaint: [] Interval history: History of present illness: Mr. Canela is a 81 year old M Presents to the ED with weakness and dizziness status progressed over the past 3 days. Patient fell out of the exercise bike about a week ago onto his left elbow. His elbow has become increasingly red swollen and tender. Then about 3 days ago he came severely weak and unable to move around much. He saw his primary care provider today who sent him into the ED. Patient found to have a cellulitis left elbow concern for septic bursitis. He h ad a leukocytosis of almost 15 with a hypotension and acute kidney injury and hypokalemia. Patient also has a history of A. fib CHF systolic dysfunction CAD with CABG. His right leg was swollen with some excoriations and erythematous. He has had problems with his leg since he multiple fractures on that lower extremity as well as veins taken from and from his CABG. He says his leg becomes red and swollen on occasion but its been worse lately and its painful. He denies fevers chills coughing or shortness of breath. 07/11 Patient arm feels stiff. His elbow may be a little bit less swollen. He says his leg feels better. He says he still very weak. Patient says he does take aspirin every day. 07/12 Patient says he is feeling little better today although his white blood cell count did increase. But he is afebrile. Patient seen by orthopedic surgery this morning. Arm wrapped in Misha wrapped no drainage at this time. Patient states erythema up the arm. Patient states the arm is mud mill tender but less painful and the swelling is starting to improve. 07/13 Patient says arm feels similar to yesterday. Overall feels little bit better as far as pain and swelling. But the erythema is extending up towards his axilla. His elbow area still extremely tender to touch or movement. His white blood cell count is a bit better than yesterday but not any better than when he arrived in the ED. And he developed a fever last night. CRP only minimally better today. ESR is increasing. 07/14 Status post washout yesterday afternoon. Patient feels better today. Leukocytosis gradually improving. CRP improving. Waiting I&D cultures. 07/15 Transition to oral clindamycin, orthopedic surgery recommended completing 3 weeks of antibiotic therapy. If the patient tolerates the oral antibiotic and no significant events occur overnight then we will plan to discharge home with home health tomorrow. Physical exam Head: Atraumatic, normal inspection. Eyes: normal appearance, no scleral icterus. Neck: full ROM Respiratory: no respiratory distress. Cardiovascular: normal rate and rhythm, S1, S2. GI/Abdominal: soft, nontender, no guarding. Extremities: Left upper extremity covered in Misha wrap, right knee cellulitis improving, fluctuance over right patella. Neurological: CN II-XII intact, intact motor, intact sensation. Psychiatric: normal mood. Skin: warm, normal color Constitutional Vitals: Vital Signs Temp Pulse Resp BP Pulse Ox O2 Del Method O2 Flow Rate 98.1 F 104 H 20 100/68 91 1 07/14/22 11:50 07/14/22 11:50 07/14/22 11:50 07/14/22 11:50 07/14/22 11:50 07/14/22 11:50 07/14/22 06:43 Period Temp Pulse Resp BP Sys/Harrison Pulse Ox O2 Del Method O2 Flow Rate Last 24 Hr 97.2 F-98.7 F 90-125 10-23 91-117/56-83 78-96 Nasal Cannula- Simple Mask 0-6 Intake and Output 07/13/22 07/14/22 07/14/22 21:59 05:59 13:59 Intake Total 250 600 Output Total 220 2650 Balance 30 -2049 Weight 82.055 kg Intake & Output: Intake & Output 07/13/22 07/14/22 07/14/22 21:59 05:59 13:59 Intake Total 250 600 Output Total 220 2650 Balance 30 -2050 Weight 82.055 kg Intake: IV 250 50 Ancef 2 gm In Dextrose 5% in 50 Water 50 ml @ 100 mls/hr IV PREOP ANEEM Rx#:[id number] Oral 550 Output: Drainage 0 Left Elbow Woundvac 0 Urine Catheter Amount 2500 Void Amount 220 150 Other: Urine Appearance Clear Clear Uretheral (Combs) Clear Urine Color Yellow Dark Nikole Uretheral (Combs) Dark Yellow Urine Odor Normal OBJ DATA Labs CBC & Chem 7: 07/15/22 05:34 07/15/22 05:33 Labs: Abnormal Lab Results 07/14/22 07/14/22 07/13/22 05:16 05:16 14:20 WBC 13.9 H RBC 3.74 L Hgb 11.2 L Hct 36.4 L MCHC 30.8 L RDW 16.3 H Immature Gran % (Auto) Neut % (Auto) Lymph % (Auto) Lymph # (Auto) Seg Neutrophils % 91 H Lymphocytes % 8 L Immature Gran # Absolute Neutrophils WBC Morphology Toxic Granulation RBC Morphology Abnormal A Hypochromasia Anisocytosis 1+ A ESR Potassium Carbon Dioxide 21 L Glucose 126 H Calcium 8.4 L Magnesium 2.6 H Alkaline Phosphatase 136 H Lactate Dehydrogenase 243 H C-Reactive Protein 14.30 H Albumin 2.0 L Globulin 4.4 H Albumin/Globulin Ratio 0.5 L Urine Protein 100 mg/dl A Urine Occult Blood Small A 07/13/22 07/13/22 07/13/22 05:37 05:37 05:37 WBC 14.6 H RBC 3.47 L Hgb 10.5 L Hct 32.4 L MCHC RDW 16.3 H Immature Gran % (Auto) 1.0 H Neut % (Auto) 85.1 H Lymph % (Auto) 9.1 L Lymph # (Auto) 1.33 L Seg Neutrophils % Lymphocytes % Immature Gran # 0.15 H Absolute Neutrophils 12.41 H WBC Morphology Toxic Granulation RBC Morphology Hypochromasia Anisocytosis ESR 58 H Potassium Carbon Dioxide 20 L Glucose Calcium 8.1 L Magnesium Alkaline Phosphatase Lactate Dehydrogenase C-Reactive Protein 17.70 H Albumin Globulin Albumin/Globulin Ratio Urine Protein Urine Occult Blood 07/12/22 07/12/22 07/12/22 05:23 05:22 05:20 WBC 15.5 H RBC 3.39 L Hgb 10.1 L Hct 32.4 L MCHC RDW 16.0 H Immature Gran % (Auto) 0.8 H Neut % (Auto) 86.9 H Lymph % (Auto) 8.1 L Lymph # (Auto) 1.26 L Seg Neutrophils % 83 H Lymphocytes % 9 L Immature Gran # 0.12 H Absolute Neutrophils 13.51 H WBC Morphology Abnormal A Toxic Granulation Many A RBC Morphology Abnormal A Hypochromasia 1+ A Anisocytosis 1+ A ESR 50 H Potassium 3.1 L Carbon Dioxide 19 L Glucose Calcium 7.6 L Magnesium Alkaline Phosphatase Lactate Dehydrogenase C-Reactive Protein 19.80 H Albumin Globulin Albumin/Globulin Ratio Urine Protein Urine Occult Blood Meds: Medications Acetaminophen (Acetaminophen 325 Mg Tablet) 650 mg PO Q6HP PRN; Protocol PRN Reason: Per Pain Protocol/Fever > 101 Last Admin: 07/12/22 20:04 Dose: 650 mg Hydrocodone Bitart/Acetaminophen (Hydrocodone/Apap 5/325mg Tablet) 1 tab PO Q4HP PRN PRN Reason: PAIN LEVEL 3-6 Albuterol/Ipratropium (Ipratropium/Albuterol 3 Ml Ampul.Neb) 3 ml NEB Q4HP PRN PRN Reason: Shortness Of Breath Aspirin (Aspirin 81 Mg Tab.Chew) 81 mg PO DAILY [facility] Last Admin: 07/14/22 08:13 Dose: 81 mg Atorvastatin Calcium (Atorvastatin 40 Mg Tablet) 80 mg PO DAILY [facility] Last Admin: 07/14/22 08:13 Dose: 80 mg Docusate Sodium (Docusate Sodium 100 Mg Capsule) 100 mg PO BID [facility] Last Admin: 07/14/22 08:14 Dose: 100 mg Enoxaparin Sodium (Enoxaparin 40 Mg/0.4 Ml Syringe) 40 mg SQ DAILY [facility] Last Admin: 07/14/22 08:14 Dose: 40 mg Famotidine (Famotidine 20 Mg Tablet) 20 mg PO QHS [facility] Last Admin: 07/13/22 21:15 Dose: 20 mg Finasteride (Finasteride 5 Mg Tablet) 5 mg PO DAILY [facility] Last Admin: 07/14/22 08:13 Dose: 5 mg Furosemide (Furosemide 20 Mg Tablet) 20 mg PO QDAY [facility] Last Admin: 07/14/22 08:14 Dose: 20 mg Potassium Chloride 40 meq/ (Dextrose) 520 mls @ 130 mls/hr IV UD PRN PRN Reason: Potassium < 3 Last Infusion: 07/11/22 14:59 Dose: Infused Magnesium Sulfate (Magnesium Sulfate) 2 gm in 50 mls @ 50 mls/hr IV UD PRN PRN Reason: Magnesium </= 1.6 CLINDAMYCIN IN 0.9 % SOD CHLOR (Clindamycin 600 Mg/50 Ml-Ns) 600 mg in 50 mls @ 100 mls/hr IV Q8H [facility] Last Infusion: 07/14/22 05:50 Dose: Infused Ceftriaxone Sodium 2 gm/ (Dextrose) 50 mls @ 100 mls/hr IV Q24H [facility] Last Admin: 07/14/22 08:15 Dose: 100 mls/hr Lactated Ringer's (Lactated Ringers) 1,000 mls @ 50 mls/hr IV .Q20H [facility] Last Admin: 07/13/22 19:15 Dose: 50 mls/hr Metoprolol Succinate (Metoprolol Succinate 25 Mg Tab.Xl.24h) 25 mg PO DAILY [facility] Last Admin: 07/14/22 08:14 Dose: 25 mg Metoprolol Tartrate (Metoprolol Tartrate 5 Mg/5 Ml Vial) 5 mg IV Q2HP PRN PRN Reason: Tachyarrhythmias HR>110 Ondansetron HCl (Ondansetron 4 Mg/2 Ml Vial) 4 mg IV Q4HP PRN PRN Reason: Nausea And Vomiting Oxycodone HCl (Oxycodone Hcl 5 Mg Tablet) 5 mg PO Q4-6HP PRN; Protocol PRN Reason: Per Pain Protocol Polyethylene Glycol (Polyethylene Glycol 3350 17 Gm Packet) 17 gm PO DAILYP PRN PRN Reason: Constipation Potassium Chloride (Potassium Chloride 20 Meq Tablet) 40 meq PO UD PRN PRN Reason: Potssium is 3-3.5 Last Admin: 07/12/22 08:18 Dose: 40 meq Potassium Chloride (Potassium Chloride 20 Meq Tablet) 40 meq PO UD PRN PRN Reason: Potassium < 3 Last Admin: 07/11/22 08:35 Dose: 40 meq Senna (Sennosides 1 Tablet) 2 tab PO DAILYP PRN PRN Reason: Constipation Sodium Chloride (0.9 % Sodium Chloride 10 Ml Syringe) 10 ml IV Q8 [facility] Last Admin: 07/14/22 05:17 Dose: 10 ml A/P Narrative A/P Narrative: Assessment: 81-year-old male with a history of coronary artery disease, peripheral arterial disease, chronic systolic heart failure, BPH, GERD admitted for severe sepsis secondary to left elbow bursitis complicated by acute kidney injury. The patient underwent I&D with bursectomy on 07/14/2022. #Resolved severe sepsis secondary to left elbow cellulitis and septic olecranon bursitis #Left elbow cellulitis/Septic bursitis & possibly RLE(improving) cellulitis: s/p I&D w/bursectomy (07/14) -h/o strep pyogenes cellulitis #Right knee cellulitis #Resolved acute kidney injury secondary to sepsis #Resolved hypokalemia #h/o systolic(40-45) CHF: on lasix/acei #RLE edema, acute on chronic: h/o of multiple fractures and vein harvest for cabg #CAD w/cabg: on asa/BB #chronic Afib: only on asa/bb #Carotid Artery Dz: mngmt per PCP #GERD: #BPH w/UR: P: -Start oral clindamycin 450 mg 3 times daily, discontinue ceftriaxone and IV clindamycin. -Monitor CBC, renal function panel. -elevate right leg and comp wraps -initially held acei/norvasc/lasix for [place] and low BP, restarted BB/lasix -cont statin/asa -Ortho following-nonweightbearing left upper extremity, keep left upper extremity splinted and dressing in place until follow-up with orthopedic surgery. -PT/OT -CM for placement needs -ppx: Lovenox / home H2 -Disposition: Home with home health, possibly tomorrow. Complete 3 weeks of oral antibiotic for septic olecranon bursitis. Follow-up with orthopedic surgery in clinic. Time Spent With Patient Time: Total time spent is greater than 50% in coordination of care (as documented) at patient's floor/unit and/or counseling patient:
[2022-07-14] MEDS: FAMOTIDINE 20 MG TABLET PO SCH (21:54)
[2022-07-15] MEDS: 0.9 % SODIUM CHLORIDE 10 ML SYRINGE IV SCH ×3 (05:51→21:07)
[2022-07-15] MEDS: CLINDAMYCIN IN 0.9 % SOD CHLOR 600 MG/50 ML BAG IV SCH (05:51)
[2022-07-15 06:25] LABS: Basophils # (Auto) 0.01 K/mcL (0.00-0.30); Basophils % (Auto) 0.1 % (0.0-2.0); Eosinophils # (Auto) 0.02 K/mcL (0.00-0.70); Eosinophils % (Auto) 0.1 % (0.0-7.0); Hematocrit 32.9 % (40.1-51.0); Hemoglobin 10.6 g/dL (13.7-17.5); Lymphocytes # (Auto) 1.54 K/mcL (1.50-4.80); Lymphocytes % (Auto) 11.3 % (15.5-49.0); Mean Cell Volume 93.5 fL (80.0-100.0); Mean Corpuscular HGB Conc 32.2 g/dL (31.0-36.0); Mean Platelet Volume 9.6 fL (7.4-10.4); Monocytes # (Auto) 0.64 K/mcL (0.10-0.90); Monocytes % (Auto) 4.7 % (1.0-12.0); Platelet Count 227 K/mcL (140-440); RBC 3.52 M/mcL (4.63-6.08); Red Cell Distribution Width 16.4 % (11.5-14.5); WBC 13.7 K/mcL (4.5-11.0)
--- NOTE | 2022-07-15 06:48 | Orthopedic Progress Note ---
SUBJECTIVE Subjective Patient information: Note initiated : 07/15/22 at 6:42 am Service Date, if different from initiated Date: [] Patient: Stas Canela 81 y/o M admitted on 07/10/22 for Stroke Sx/Sepsis. Chief Complaint: [no issues overnight, pain improving] Constitutional Vitals: Vital Signs Temp Pulse Resp BP Pulse Ox O2 Del Method O2 Flow Rate 97.7 F 110 H 16 124/71 92 1 07/15/22 02:55 07/15/22 02:55 07/15/22 02:55 07/15/22 02:55 07/15/22 02:55 07/15/22 02:55 07/14/22 06:43 Period Temp Pulse Resp BP Sys/Harrison Pulse Ox O2 Del Method O2 Flow Rate Last 24 Hr 97.3 F-98.6 F 90-110 16-20 100-124/66-75 90-95 Nasal Cannula- Room Air 1 Intake and Output 07/14/22 07/15/22 07/15/22 21:59 05:59 13:59 Intake Total 550 520 50 Output Total 700 525 Balance -150 -5 50 Weight 184 lb 9.6 oz Intake & Output: Intake & Output 07/14/22 07/15/22 07/15/22 21:59 05:59 13:59 Intake Total 550 520 50 Output Total 700 525 Balance -150 -5 50 Weight 184 lb 9.6 oz Intake: IV 50 50 50 Oral 500 470 Output: Drainage 0 Left Elbow Woundvac 0 Urine Catheter Amount 700 525 Other: Urine Color Dark Nikole Blood Tinged Blood Tinged Additional findings Additional findings: alert and appropriate -left elbow: dressing removed. slight drainage from incision but overall appears signficantly improved. right knee: fluctuance over pre patellar bursa is minimal and improved from time of left elbow surgery. OBJ DATA Labs CBC & Chem 7: 07/15/22 05:34 07/14/22 05:16 Labs: Abnormal Lab Results 07/15/22 07/14/22 07/14/22 05:34 05:16 05:16 WBC 13.7 H 13.9 H RBC 3.52 L 3.74 L Hgb 10.6 L 11.2 L Hct 32.9 L 36.4 L MCHC 30.8 L RDW 16.4 H 16.3 H Immature Gran % (Auto) 0.8 H Neut % (Auto) 83.0 H Lymph % (Auto) 11.3 L Lymph # (Auto) Seg Neutrophils % 91 H Lymphocytes % 8 L Immature Gran # 0.11 H Absolute Neutrophils 11.36 H WBC Morphology Toxic Granulation RBC Morphology Abnormal A Hypochromasia Anisocytosis 1+ A ESR Potassium Carbon Dioxide 21 L Glucose 126 H Calcium 8.4 L Magnesium 2.6 H Alkaline Phosphatase 136 H Lactate Dehydrogenase 243 H C-Reactive Protein 14.30 H Albumin 2.0 L Globulin 4.4 H Albumin/Globulin Ratio 0.5 L Urine Protein Urine Occult Blood 07/13/22 07/13/22 07/13/22 14:20 05:37 05:37 WBC RBC Hgb Hct MCHC RDW Immature Gran % (Auto) Neut % (Auto) Lymph % (Auto) Lymph # (Auto) Seg Neutrophils % Lymphocytes % Immature Gran # Absolute Neutrophils WBC Morphology Toxic Granulation RBC Morphology Hypochromasia Anisocytosis ESR 58 H Potassium Carbon Dioxide 20 L Glucose Calcium 8.1 L Magnesium Alkaline Phosphatase Lactate Dehydrogenase C-Reactive Protein 17.70 H Albumin Globulin Albumin/Globulin Ratio Urine Protein 100 mg/dl A Urine Occult Blood Small A 07/13/22 07/12/22 07/12/22 05:37 05:23 05:22 WBC 14.6 H RBC 3.47 L Hgb 10.5 L Hct 32.4 L MCHC RDW 16.3 H Immature Gran % (Auto) 1.0 H Neut % (Auto) 85.1 H Lymph % (Auto) 9.1 L Lymph # (Auto) 1.33 L Seg Neutrophils % Lymphocytes % Immature Gran # 0.15 H Absolute Neutrophils 12.41 H WBC Morphology Toxic Granulation RBC Morphology Hypochromasia Anisocytosis ESR 50 H Potassium 3.1 L Carbon Dioxide 19 L Glucose Calcium 7.6 L Magnesium Alkaline Phosphatase Lactate Dehydrogenase C-Reactive Protein 19.80 H Albumin Globulin Albumin/Globulin Ratio Urine Protein Urine Occult Blood 07/12/22 05:20 WBC RBC Hgb Hct MCHC RDW Immature Gran % (Auto) Neut % (Auto) Lymph % (Auto) Lymph # (Auto) Seg Neutrophils % 83 H Lymphocytes % 9 L Immature Gran # Absolute Neutrophils WBC Morphology Abnormal A Toxic Granulation Many A RBC Morphology Abnormal A Hypochromasia 1+ A Anisocytosis 1+ A ESR Potassium Carbon Dioxide Glucose Calcium Magnesium Alkaline Phosphatase Lactate Dehydrogenase C-Reactive Protein Albumin Globulin Albumin/Globulin Ratio Urine Protein Urine Occult Blood Meds: Medications Acetaminophen (Acetaminophen 325 Mg Tablet) 650 mg PO Q6HP PRN; Protocol PRN Reason: Per Pain Protocol/Fever > 101 Last Admin: 07/12/22 20:04 Dose: 650 mg Hydrocodone Bitart/Acetaminophen (Hydrocodone/Apap 5/325mg Tablet) 1 tab PO Q4HP PRN PRN Reason: PAIN LEVEL 3-6 Albuterol/Ipratropium (Ipratropium/Albuterol 3 Ml Ampul.Neb) 3 ml NEB Q4HP PRN PRN Reason: Shortness Of Breath Aspirin (Aspirin 81 Mg Tab.Chew) 81 mg PO DAILY [facility] Last Admin: 07/14/22 08:13 Dose: 81 mg Atorvastatin Calcium (Atorvastatin 40 Mg Tablet) 80 mg PO DAILY [facility] Last Admin: 07/14/22 08:13 Dose: 80 mg Docusate Sodium (Docusate Sodium 100 Mg Capsule) 100 mg PO BID [facility] Last Admin: 07/14/22 21:54 Dose: 100 mg Enoxaparin Sodium (Enoxaparin 40 Mg/0.4 Ml Syringe) 40 mg SQ DAILY [facility] Last Admin: 07/14/22 08:14 Dose: 40 mg Famotidine (Famotidine 20 Mg Tablet) 20 mg PO QHS [facility] Last Admin: 07/14/22 21:54 Dose: 20 mg Finasteride (Finasteride 5 Mg Tablet) 5 mg PO DAILY [facility] Last Admin: 07/14/22 08:13 Dose: 5 mg Furosemide (Furosemide 20 Mg Tablet) 20 mg PO QDAY [facility] Last Admin: 07/14/22 08:14 Dose: 20 mg Potassium Chloride 40 meq/ (Dextrose) 520 mls @ 130 mls/hr IV UD PRN PRN Reason: Potassium < 3 Last Infusion: 07/11/22 14:59 Dose: Infused Magnesium Sulfate (Magnesium Sulfate) 2 gm in 50 mls @ 50 mls/hr IV UD PRN PRN Reason: Magnesium </= 1.6 CLINDAMYCIN IN 0.9 % SOD CHLOR (Clindamycin 600 Mg/50 Ml-Ns) 600 mg in 50 mls @ 100 mls/hr IV Q8H [facility] Last Infusion: 07/15/22 06:36 Dose: Infused Ceftriaxone Sodium 2 gm/ (Dextrose) 50 mls @ 100 mls/hr IV Q24H [facility] Last Infusion: 07/14/22 09:50 Dose: Infused Metoprolol Succinate (Metoprolol Succinate 25 Mg Tab.Xl.24h) 25 mg PO DAILY [facility] Last Admin: 07/14/22 08:14 Dose: 25 mg Metoprolol Tartrate (Metoprolol Tartrate 5 Mg/5 Ml Vial) 5 mg IV Q2HP PRN PRN Reason: Tachyarrhythmias HR>110 Ondansetron HCl (Ondansetron 4 Mg/2 Ml Vial) 4 mg IV Q4HP PRN PRN Reason: Nausea And Vomiting Oxycodone HCl (Oxycodone Hcl 5 Mg Tablet) 5 mg PO Q4-6HP PRN; Protocol PRN Reason: Per Pain Protocol Polyethylene Glycol (Polyethylene Glycol 3350 17 Gm Packet) 17 gm PO DAILYP PRN PRN Reason: Constipation Potassium Chloride (Potassium Chloride 20 Meq Tablet) 40 meq PO UD PRN PRN Reason: Potssium is 3-3.5 Last Admin: 07/12/22 08:18 Dose: 40 meq Potassium Chloride (Potassium Chloride 20 Meq Tablet) 40 meq PO UD PRN PRN Reason: Potassium < 3 Last Admin: 07/11/22 08:35 Dose: 40 meq Senna (Sennosides 1 Tablet) 2 tab PO DAILYP PRN PRN Reason: Constipation Sodium Chloride (0.9 % Sodium Chloride 10 Ml Syringe) 10 ml IV Q8 [facility] Last Admin: 07/15/22 05:51 Dose: 10 ml A/P Assessment and plan (1) Bursitis: Assessment and plan: POD2 s/p left septic olecranon bursectomy --changed dressing today to dry dressing --keep splinted and dressing in place until f/u with orthopedics - Wednesday --when d/c would continue abx for a total of 3 weeks for total duration. --non weight bearing left upper extremity. Status: Acute Plan POD2 s/p left septic olecranon bursectomy --changed dressing today to dry dressing --keep splinted and dressing in place until f/u with orthopedics - Wednesday --when d/c would continue abx for a total of 3 weeks for total duration. --non weight bearing left upper extremity. Sepsis Sepsis Identified: No Time Zero: c Narrative A/P Narrative: c Plan of Treatment: POD2 s/p left septic olecranon bursectomy --changed dressing today to dry dressing --keep splinted and dressing in place until f/u with orthopedics - Wednesday --when d/c would continue abx for a total of 3 weeks for total duration. --non weight bearing left upper extremity. Time Spent With Patient Time: Total time spent is greater than 50% in coordination of care (as documented) at patient's floor/unit and/or counseling patient: Total time spent with greater than 50% in coordination of care (as documented) at patient's floor/unit and/or counseling patient:: less than 15 minutes Critical Care Time: No Total Critical Care Time: 0
[2022-07-15 06:53] LABS: Blood Urea Nitrogen 21 mg/dL (8-23); Calcium 8.4 mg/dL (8.6-10.4); Carbon Dioxide 24 mmol/L (22-30); Chloride 101 mmol/L (96-108); Glomerular Filtration Rate 82; Glucose 108 mg/dL (70-105)
[2022-07-15] MEDS: ENOXAPARIN 40 MG/0.4 ML SYRINGE SQ SCH (09:04)
[2022-07-15] MEDS: DOCUSATE SODIUM 100 MG CAPSULE PO SCH ×2 (09:05→21:07)
[2022-07-15] MEDS: ASPIRIN 81 MG TAB.CHEW PO SCH (09:05)
[2022-07-15] MEDS: FINASTERIDE 5 MG TABLET PO SCH (09:05)
[2022-07-15] MEDS: ATORVASTATIN 40 MG TABLET PO SCH (09:05)
[2022-07-15] MEDS: FUROSEMIDE 20 MG TABLET PO SCH (09:05)
[2022-07-15] MEDS: METOPROLOL SUCCINATE 25 MG TAB.XL.24H PO SCH (09:05)
[2022-07-15] MEDS: CLINDAMYCIN 150 MG CAPSULE PO SCH ×2 (13:56→21:05)
[2022-07-15] MEDS: FAMOTIDINE 20 MG TABLET PO SCH (21:05)
[2022-07-16] MEDS: CLINDAMYCIN 150 MG CAPSULE PO SCH (05:51)
[2022-07-16] MEDS: 0.9 % SODIUM CHLORIDE 10 ML SYRINGE IV SCH (05:51)
[2022-07-16 06:50] LABS: Basophils # (Auto) 0.03 K/mcL (0.00-0.30); Basophils % (Auto) 0.3 % (0.0-2.0); Eosinophils # (Auto) 0.13 K/mcL (0.00-0.70); Eosinophils % (Auto) 1.2 % (0.0-7.0); Hematocrit 37.7 % (40.1-51.0); Hemoglobin 11.8 g/dL (13.7-17.5); Lymphocytes # (Auto) 2.27 K/mcL (1.50-4.80); Lymphocytes % (Auto) 21.4 % (15.5-49.0); Mean Cell Volume 93.8 fL (80.0-100.0); Mean Corpuscular HGB Conc 31.3 g/dL (31.0-36.0); Mean Platelet Volume 9.8 fL (7.4-10.4); Monocytes # (Auto) 0.55 K/mcL (0.10-0.90); Monocytes % (Auto) 5.2 % (1.0-12.0); Neutrophils % (Auto) 70.7 % (38.0-78.0); Platelet Count 273 K/mcL (140-440); RBC 4.02 M/mcL (4.63-6.08); Red Cell Distribution Width 16.3 % (11.5-14.5); WBC 10.6 K/mcL (4.5-11.0)
[2022-07-16 06:59] LABS: Albumin 2.3 gm/dL (3.2-5.2); Blood Urea Nitrogen 14 mg/dL (8-23); Calcium 8.5 mg/dL (8.6-10.4); Carbon Dioxide 23 mmol/L (22-30); Chloride 100 mmol/L (96-108); Glomerular Filtration Rate 87; Glucose 94 mg/dL (70-105)
[2022-07-16] MEDS: ASPIRIN 81 MG TAB.CHEW PO SCH (08:34)
[2022-07-16] MEDS: ATORVASTATIN 40 MG TABLET PO SCH (08:34)
[2022-07-16] MEDS: FINASTERIDE 5 MG TABLET PO SCH (08:35)
[2022-07-16] MEDS: FUROSEMIDE 20 MG TABLET PO SCH (08:35)
[2022-07-16] MEDS: ENOXAPARIN 40 MG/0.4 ML SYRINGE SQ SCH (08:36)
[2022-07-16] MEDS: DOCUSATE SODIUM 100 MG CAPSULE PO SCH (08:36)
[2022-07-16] MEDS ORDERED: NEUTRA PHOS 1 PACKET PO SCH (09:00)
[2022-07-16] MEDS ORDERED: METOPROLOL SUCCINATE 25 MG TAB.XL.24H PO SCH (09:00)
--- NOTE | 2022-07-16 10:33 | Discharge Summary ---
Discharge Provider Provider IMPORTANT FOLLOW-UP INFORMATION FOR PCP: Patient information: Note initiated : 07/16/22 at 10:31 am Service Date, if different from initiated Date: [] Patient: Stas Canela 81 y/o M admitted on 07/10/22 for Stroke Sx/Sepsis. Chief Complaint: [] Date of admission: 07/10/22 21:13 Discharge date: 07/16/22 Primary care physician: Raquel Nayak Consults: 07/10/22 Consult to Physician [CONS] Stat Comment: Consulting Provider: Rinku Watson Reason For Exam: Physician to Consult 07/11/22 21:21 Consult to Physician [CONS] Routine Comment: Consulting Provider: Ashwin Meadows Reason For Exam: Physician to Consult COURSE Hospital Course Hospital course: Mr. Canela is a 81 year old M Presents to the ED with weakness and dizziness status progressed over the past 3 days. Patient fell out of the exercise bike about a week ago onto his left elbow. His elbow has become increasingly red swollen and tender. Then about 3 days ago he came severely weak and unable to move around much. He saw his primary care provider today who sent him into the ED. Patient found to have a cellulitis left elbow concern for septic bursitis. He had a leukocytosis of almost 15 with a hypotension and acute kidney injury and hypokalemia. Patient also has a history of A. fib CHF systolic dysfunction CAD with CABG. His right leg was swollen with some excoriations and erythematous. He has had problems with his leg since he multiple fractures on that lower extremity as well as veins taken from and from his CABG. He says his leg becomes red and swollen on occasion but its been worse lately and its painful. He denies fevers chills coughing or shortness of breath. 07/11 Patient arm feels stiff. His elbow may be a little bit less swollen. He says his leg feels better. He says he still very weak. Patient says he does take aspirin every day. 07/12 Patient says he is feeling little better today although his white blood cell count did increase. But he is afebrile. Patient seen by orthopedic surgery this morning. Arm wrapped in Misha wrapped no drainage at this time. Patient states erythema up the arm. Patient states the arm is brick tender but less painful and the swelling is starting to improve. 07/13 Patient says arm feels similar to yesterday. Overall feels little bit better as far as pain and swelling. But the erythema is extending up towards his axilla. His elbow area still extremely tender to touch or movement. His white blood cell count is a bit better than yesterday but not any better than when he arrived in the ED. And he developed a fever last night. CRP only minimally better today. ESR is increasing. 07/14 Status post washout yesterday afternoon. Patient feels better today. Leukocytosis gradually improving. CRP improving. Waiting I&D cultures. 07/15 Transition to oral clindamycin, orthopedic surgery recommended completing 3 weeks of antibiotic therapy. If the patient tolerates the oral antibiotic and no significant events occur overnight then we will plan to discharge home with home health tomorrow. 07/16 Afebrile overnight, vitals stable. Leukocytosis resolved. Discharged to home with orthopedic surgery follow-up, continue clindamycin to complete 3 weeks of antibiotic treatment per orthopedic surgery recommendation. Increase Toprol to 50 mg once daily, continue lisinopril and discontinued Norvasc at discharge. Follow-up with PCP for further blood pressure monitoring and management of hypertension. Physical exam Head: Atraumatic, normal inspection. Eyes: normal appearance, no scleral icterus. Neck: full ROM Respiratory: no respiratory distress. Cardiovascular: normal rate and rhythm, S1, S2. GI/Abdominal: soft, nontender, no guarding. Extremities: Left upper extremity covered in Misha wrap, right knee cellulitis improving. . Neurological: CN II-XII intact, intact motor, intact sensation. Psychiatric: normal mood. Skin: warm, normal color Discharge diagnosis: Septic olecranon bursitis Time Spent with Patient Time attestation: Total time spent providing and/or coordinating discharge services: Time spent: Greater than 30 minutes EXAM Constitutional Vitals: Temp Pulse Resp BP Pulse Ox O2 Del Method O2 Flow Rate 98.1 F 105 H 18 149/89 95 1 07/16/22 07:38 07/16/22 07:38 07/16/22 07:38 07/16/22 07:38 07/16/22 07:38 07/16/22 07:38 07/14/22 06:43 Discharge Data Data Completed and Pending Labs on day of discharge: Labs from last 24 hours 07/16/22 07/16/22 05:40 05:40 WBC 10.6 RBC 4.02 L Hgb 11.8 L Hct 37.7 L MCV 93.8 MCH 29.4 MCHC 31.3 RDW 16.3 H Plt Count 273 MPV 9.8 Immature Gran % (Auto) 1.2 H Neut % (Auto) 70.7 Lymph % (Auto) 21.4 [place] % (Auto) 5.2 Eos % (Auto) 1.2 Baso % (Auto) 0.3 Lymph # (Auto) 2.27 [place] # (Auto) 0.55 Eos # (Auto) 0.13 Baso # (Auto) 0.03 Immature Gran # 0.13 H Absolute Neutrophils 7.48 Sodium 132 L Potassium 4.0 Chloride 100 Carbon Dioxide 23 Anion Gap 9.0 BUN 14 Creatinine 0.7 GFR Calculation 87 Glucose 94 Calcium 8.5 L Phosphorus 2.0 L Albumin 2.3 L Preliminary micro results at discharge 07/13/22 21:32 Gram Stain - Preliminary Elbow - Left Anaerobic Culture - Preliminary Gram Stain - Preliminary Wound Culture - Preliminary Discharge Plan Patient/Caregiver Discharge Instructions Activity: increase activity as tolerated Diet: Regular Diet Prescriptions: New acetaminophen 325 mg Tablet 650 mg PO Q6HP PRN (Reason: Per Pain Protocol/Fever > 101) Qty: 30 0RF clindamycin HCl 150 mg Capsule 450 mg PO Q8 21 Days Qty: 189 0RF metoprolol succinate 25 mg Tablet Extended Release 24 Hr 50 mg PO DAILY Qty: 60 3RF Continued atorvastatin 80 mg tablet 80 mg PO DAILY famotidine 40 mg tablet 40 mg PO QHS finasteride 5 mg tablet 5 mg PO DAILY lisinopril 20 mg tablet 20 mg PO BID furosemide 20 mg Tablet 20 mg PO QDAY Rx Instructions: take 1-2 tablets by mouth once daily aspirin 81 mg Tablet 81 mg PO DAILY Discontinued amlodipine 5 mg tablet 5 mg PO DAILY metoprolol succinate 25 mg tablet 25 mg PO DAILY Follow Up Plan Follow up with: Ashwin Meadows MD [Physician] - (Follow up septic olecranon bursitis. ) Raquel Nayak MD [Primary Care Provider] - Patient Disposition: Home, Self-Care Overall status at discharge: patient is progressing back to baseline Discharge Orders: Discharge Order (Routine); Ordered 07/16/22 Ordered By: Lance Hernandez
== END 2022-07-16 11:50 | disposition home or self-care (01) | DRG 854 ==
LOC: ED 15:50 → ICU 21:13 → MEDSUR 07-12 15:32
PROVIDERS: ADMIT Internal Medicine; ATTEND Internal Medicine

== ENCOUNTER 2024-01-05 15:40 | Inpatient (IN) ==
[2024-01-05] MEDS ORDERED: POTASSIUM CHLORIDE 20 MEQ TABLET PO PRN ×2 (16:38)
[2024-01-05] MEDS ORDERED: ONDANSETRON 4 MG/2 ML VIAL IV PRN (16:38)
[2024-01-05] MEDS ORDERED: POLYETHYLENE GLYCOL 3350 17 GM PACKET PO PRN (16:38)
[2024-01-05] MEDS ORDERED: ACETAMINOPHEN 325 MG TABLET PO PRN (16:38)
[2024-01-05] MEDS ORDERED: POTASSIUM CHLORIDE 40 MEQ in DEXTROSE 5% IN WATER 500 ML IV PRN (16:38)
[2024-01-05] MEDS ORDERED: SENNOSIDES 1 TABLET PO PRN (16:38)
[2024-01-05] MEDS ORDERED: MAGNESIUM SULFATE 2 GM/50 ML BAG IV PRN (16:38)
[2024-01-05] MEDS ORDERED: IPRATROPIUM/ALBUTEROL 3 ML AMPUL.NEB NEB PRN (16:38)
[2024-01-05] MEDS ORDERED: METOPROLOL TARTRATE 5 MG/5 ML VIAL IV PRN (16:44)
[2024-01-05] MEDS ORDERED: VANCOMYCIN PER PHARMACY IV SCH (16:45)
[2024-01-05] MEDS: 0.9 % SODIUM CHLORIDE 1,000 ML IV SCH (17:38)
[2024-01-05] MEDS: 0.9 % SODIUM CHLORIDE 250 ML IV SCH ×3 (17:38→17:57)
[2024-01-05] MEDS: IDARUCIZUMAB 2.5 GM/50 ML VIAL IV ONE (17:47)
[2024-01-05] MEDS: VANCOMYCIN 1,500 MG in 0.9 % SODIUM CHLORIDE 500 ML IV ONE (18:40)
[2024-01-05] MEDS: MEROPENEM 0.5 GM in 0.9 % SODIUM CHLORIDE 50 ML IV SCH (20:44)
[2024-01-05] MEDS: DOCUSATE SODIUM 100 MG CAPSULE PO SCH (20:44)
[2024-01-06 00:41] LABS: Hematocrit 25.3 % (40.1-51.0); Hemoglobin 8.7 g/dL (13.7-17.5)
[2024-01-06 06:01] LABS: Basophils # (Auto) 0 K/mcL (0.00-0.30); Basophils % (Auto) 0 % (0.0-2.0); Eosinophils # (Auto) 0.03 K/mcL (0.00-0.70); Eosinophils % (Auto) 0.3 % (0.0-7.0); Hematocrit 27.7 % (40.1-51.0); Hemoglobin 8.7 g/dL (13.7-17.5); Lymphocytes # (Auto) 1.49 K/mcL (1.50-4.80); Lymphocytes % (Auto) 13.8 % (15.5-49.0); Mean Cell Volume 96.9 fL (80.0-100.0); Mean Corpuscular HGB Conc 31.4 g/dL (31.0-36.0); Mean Platelet Volume 8.9 fL (8.8-12.5); Monocytes # (Auto) 0.66 K/mcL (0.10-0.90); Monocytes % (Auto) 6.1 % (1.0-12.0); Neutrophils % (Auto) 77.2 % (38.0-78.0); Platelet Count 345 K/mcL (140-440); RBC 2.86 M/mcL (4.63-6.08); Red Cell Distribution Width 14.3 % (11.5-14.5); WBC 10.8 K/mcL (4.5-11.0)
[2024-01-06 06:23] LABS: ALT/SGPT < 5 U/L (<40); AST/SGOT 20 U/L (<40); Albumin 2.8 gm/dL (3.2-5.2); Albumin/Globulin Ratio 1.2 (1.0-2.3); Alkaline Phosphatase 82 U/L (39-117); Bilirubin,Direct 0.3 mg/dL (<0.3); Bilirubin,Total 0.7 mg/dL (0.1-1.0); Blood Urea Nitrogen 52 mg/dL (8-23); Calcium 7.7 mg/dL (8.6-10.4); Carbon Dioxide 21 mmol/L (22-30); Chloride 108 mmol/L (96-108); Globulin 2.4 gm/dL (2.2-3.7); Glomerular Filtration Rate 55; Glucose 97 mg/dL (70-105); Lactate Dehydrogenase 143 U/L (135-225); Phosphorous 2.1 mg/dL (2.5-4.5); Triglycerides 89 mg/dL (<150); Uric Acid 9.1 mg/dL (2.5-8.0)
[2024-01-06] MEDS: MEROPENEM 1 GM in 0.9 % SODIUM CHLORIDE 50 ML IV SCH (08:33)
[2024-01-06] MEDS: SODIUM PHOSPHATE 15 MMOL in DEXTROSE 5% IN WATER 250 ML IV ONE (08:33)
[2024-01-06] MEDS: PANTOPRAZOLE 40 MG TABLET PO SCH (09:35)
[2024-01-06] MEDS: ATORVASTATIN 40 MG TABLET PO SCH (09:35)
[2024-01-06] MEDS: FINASTERIDE 5 MG TABLET PO SCH (09:36)
[2024-01-06 09:45] LABS: Vancomycin,Random 11.2 ug/mL
[2024-01-06] MEDS: ALBUMIN HUMAN 12.5 GM/50 ML VIAL IV ONE (10:24)
[2024-01-06] MEDS ORDERED: ROCURONIUM 10 MG/ML ML IV ONE ×2 (10:51→12:00)
[2024-01-06] MEDS ORDERED: fentaNYL 100 MCG/2 ML VIAL ONE ×2 (10:51→12:01)
[2024-01-06] MEDS ORDERED: ONDANSETRON 4 MG/2 ML VIAL ONE ×2 (10:51→12:00)
[2024-01-06] MEDS ORDERED: PROPOFOL 200 MG/20 ML VIAL IV ONE ×2 (10:51→12:00)
[2024-01-06] MEDS: VANCOMYCIN 1,500 MG in 0.9 % SODIUM CHLORIDE 500 ML IV ONE (11:01)
[2024-01-06] MEDS ORDERED: SUGAMMADEX SODIUM 200 MG/2 ML VIAL IV ONE (11:36)
[2024-01-06] MEDS ORDERED: PHENYLephrine 1 MG/10 ML SYRINGE (ANEST) ONE (11:46)
[2024-01-06] MEDS ORDERED: IPRATROPIUM/ALBUTEROL 3 ML AMPUL.NEB NEB PRN (12:09)
[2024-01-07 05:50] LABS: Hematocrit 24.5 % (40.1-51.0); Hemoglobin 7.6 g/dL (13.7-17.5)
[2024-01-07 06:35] LABS: ALT/SGPT < 5 U/L (<40); AST/SGOT 19 U/L (<40); Albumin 2.7 gm/dL (3.2-5.2); Albumin/Globulin Ratio 1.3 (1.0-2.3); Alkaline Phosphatase 75 U/L (39-117); Bilirubin,Direct < 0.2 mg/dL (0-0.3); Bilirubin,Total 0.4 mg/dL (0.1-1.0); Blood Urea Nitrogen 23 mg/dL (8-23); Calcium 7.5 mg/dL (8.6-10.4); Carbon Dioxide 22 mmol/L (22-30); Chloride 105 mmol/L (96-108); Globulin 2.1 gm/dL (2.2-3.7); Glomerular Filtration Rate 81; Glucose 100 mg/dL (70-105); Lactate Dehydrogenase 141 U/L (135-225); Phosphorous 1.6 mg/dL (2.5-4.5); Triglycerides 85 mg/dL (<150); Uric Acid 6.8 mg/dL (2.5-8.0)
[2024-01-07 06:40] LABS: Vancomycin,Random 13.6 ug/mL
[2024-01-07] MEDS: cefTRIAXone 1 GM VIAL IV SCH (08:17)
[2024-01-07] MEDS: NEUTRA PHOS 1 PACKET PO SCH (08:18)
[2024-01-07] MEDS: PHOSPHORUS 250 MG TABLET PO SCH (08:18)
[2024-01-07] MEDS: SODIUM PHOSPHATE 30 MMOL in DEXTROSE 5% IN WATER 500 ML IV SCH (08:25)
[2024-01-07] MEDS: LACTATED RINGERS 250 ML IV ONE (08:46)
[2024-01-07] MEDS: 0.9 % SODIUM CHLORIDE 250 ML IV SCH ×3 (10:06→14:45)
[2024-01-07] MEDS: NOREPINEPHRINE BITARTRATE 8 MG in 0.9 % SODIUM CHLORIDE 242 ML IV PRN (14:44)
[2024-01-07 16:43] LABS: Hematocrit 29.1 % (40.1-51.0); Hemoglobin 9.3 g/dL (13.7-17.5)
[2024-01-08 03:12] LABS: Hematocrit 28.6 % (40.1-51.0); Hemoglobin 9.1 g/dL (13.7-17.5)
[2024-01-08 03:34] LABS: ALT/SGPT < 5 U/L (<40); AST/SGOT 16 U/L (<40); Albumin 2.7 gm/dL (3.2-5.2); Albumin/Globulin Ratio 1.2 (1.0-2.3); Alkaline Phosphatase 79 U/L (39-117); Bilirubin,Direct < 0.2 mg/dL (0-0.3); Bilirubin,Total 0.4 mg/dL (0.1-1.0); Blood Urea Nitrogen 13 mg/dL (8-23); Calcium 7.5 mg/dL (8.6-10.4); Carbon Dioxide 22 mmol/L (22-30); Chloride 102 mmol/L (96-108); Globulin 2.2 gm/dL (2.2-3.7); Glomerular Filtration Rate 86; Glucose 147 mg/dL (70-105); Lactate Dehydrogenase 201 U/L (135-225); Phosphorous 2.9 mg/dL (2.5-4.5); Triglycerides 86 mg/dL (<150); Uric Acid 5.4 mg/dL (2.5-8.0)
[2024-01-08 08:16] LABS: Hematocrit 29.3 % (40.1-51.0); Hemoglobin 9.5 g/dL (13.7-17.5)
[2024-01-09 08:48] LABS: Basophils # (Auto) 0.01 K/mcL (0.00-0.30); Basophils % (Auto) 0.1 % (0.0-2.0); Eosinophils # (Auto) 0.15 K/mcL (0.00-0.70); Eosinophils % (Auto) 1.2 % (0.0-7.0); Hematocrit 27.7 % (40.1-51.0); Hemoglobin 8.9 g/dL (13.7-17.5); Lymphocytes # (Auto) 1.77 K/mcL (1.50-4.80); Lymphocytes % (Auto) 13.6 % (15.5-49.0); Mean Cell Volume 96.2 fL (80.0-100.0); Mean Corpuscular HGB Conc 32.1 g/dL (31.0-36.0); Mean Platelet Volume 8.3 fL (8.8-12.5); Monocytes # (Auto) 0.53 K/mcL (0.10-0.90); Monocytes % (Auto) 4.1 % (1.0-12.0); Neutrophils % (Auto) 79.9 % (38.0-78.0); Platelet Count 356 K/mcL (140-440); RBC 2.88 M/mcL (4.63-6.08)
[2024-01-09 09:20] LABS: Blood Urea Nitrogen 6 mg/dL (8-23); Calcium 7.7 mg/dL (8.6-10.4); Carbon Dioxide 24 mmol/L (22-30); Chloride 104 mmol/L (96-108); Glomerular Filtration Rate 86; Glucose 127 mg/dL (70-105)
[2024-01-09] MEDS: ASPIRIN 81 MG TAB.CHEW PO SCH (09:44)
[2024-01-09] MEDS: ENOXAPARIN 80 MG/0.8 ML SYRINGE SQ SCH (14:52)
[2024-01-10 06:17] LABS: Basophils # (Auto) 0.02 K/mcL (0.00-0.30); Basophils % (Auto) 0.2 % (0.0-2.0); Eosinophils # (Auto) 0.29 K/mcL (0.00-0.70); Eosinophils % (Auto) 2.5 % (0.0-7.0); Hematocrit 29.9 % (40.1-51.0); Hemoglobin 9.5 g/dL (13.7-17.5); Lymphocytes # (Auto) 1.66 K/mcL (1.50-4.80); Lymphocytes % (Auto) 14.5 % (15.5-49.0); Mean Cell Volume 97.1 fL (80.0-100.0); Mean Corpuscular HGB Conc 31.8 g/dL (31.0-36.0); Mean Platelet Volume 8.9 fL (8.8-12.5); Monocytes # (Auto) 0.59 K/mcL (0.10-0.90); Monocytes % (Auto) 5.2 % (1.0-12.0); Platelet Count 414 K/mcL (140-440); RBC 3.08 M/mcL (4.63-6.08); Red Cell Distribution Width 13.9 % (11.5-14.5); WBC 11.4 K/mcL (4.5-11.0)
[2024-01-10 07:01] LABS: ALT/SGPT 5 U/L (<40); AST/SGOT 15 U/L (<40); Albumin 2.7 gm/dL (3.2-5.2); Albumin/Globulin Ratio 1.2 (1.0-2.3); Alkaline Phosphatase 75 U/L (39-117); Bilirubin,Total 0.3 mg/dL (0.1-1.0); Blood Urea Nitrogen 8 mg/dL (8-23); Carbon Dioxide 26 mmol/L (22-30); Chloride 102 mmol/L (96-108); Globulin 2.3 gm/dL (2.2-3.7); Glomerular Filtration Rate 86; Glucose 92 mg/dL (70-105)
[2024-01-10] MEDS ORDERED: ENOXAPARIN 80 MG/0.8 ML SYRINGE SQ SCH (09:00)
[2024-01-11 07:48] LABS: Basophils # (Auto) 0.01 K/mcL (0.00-0.30); Basophils % (Auto) 0.1 % (0.0-2.0); Eosinophils # (Auto) 0.25 K/mcL (0.00-0.70); Eosinophils % (Auto) 2.9 % (0.0-7.0); Hemoglobin 9.3 g/dL (13.7-17.5); Lymphocytes # (Auto) 1.29 K/mcL (1.50-4.80); Lymphocytes % (Auto) 14.9 % (15.5-49.0); Mean Cell Volume 97.7 fL (80.0-100.0); Mean Platelet Volume 8.7 fL (8.8-12.5); Monocytes # (Auto) 0.46 K/mcL (0.10-0.90); Monocytes % (Auto) 5.3 % (1.0-12.0); Neutrophils % (Auto) 76.1 % (38.0-78.0); Platelet Count 465 K/mcL (140-440); RBC 3.07 M/mcL (4.63-6.08); WBC 8.6 K/mcL (4.5-11.0)
[2024-01-11] MEDS: SULFAMETHOXAZOLE/TRIMETHOPRIM 1 TABLET PO SCH (20:03)
[2024-01-12] MEDS: TAMSULOSIN 0.4 MG CAPSULE PO SCH (12:53)
== END 2024-01-12 14:05 | disposition home or self-care (01) | DRG 871 ==
LOC: ICU 16:45 → MEDSUR 01-11 12:16
PROVIDERS: ADMIT Internal Medicine; ATTEND Internal Medicine

== ENCOUNTER 2024-01-21 09:58 | Inpatient (IN) ==
[2024-01-21] MEDS: 0.9 % SODIUM CHLORIDE 1,000 ML IV ONE ×2 (10:25→12:02)
[2024-01-21 10:48] LABS: Basophils # (Auto) 0.02 K/mcL (0.00-0.30); Basophils % (Auto) 0.5 % (0.0-2.0); Eosinophils # (Auto) 0.09 K/mcL (0.00-0.70); Eosinophils % (Auto) 2.1 % (0.0-7.0); Hematocrit 26.9 % (40.1-51.0); Hemoglobin 8.1 g/dL (13.7-17.5); Lymphocytes # (Auto) 0.87 K/mcL (1.50-4.80); Lymphocytes % (Auto) 20.4 % (15.5-49.0); Mean Cell Volume 97.8 fL (80.0-100.0); Mean Corpuscular HGB Conc 30.1 g/dL (31.0-36.0); Mean Platelet Volume 8.8 fL (8.8-12.5); Monocytes # (Auto) 0.28 K/mcL (0.10-0.90); Monocytes % (Auto) 6.6 % (1.0-12.0); Neutrophils % (Auto) 70.4 % (38.0-78.0); Platelet Count 325 K/mcL (140-440); RBC 2.75 M/mcL (4.63-6.08); Red Cell Distribution Width 14.5 % (11.5-14.5); WBC 4.3 K/mcL (4.5-11.0)
[2024-01-21 11:03] LABS: ALT/SGPT 11 U/L (<40); AST/SGOT 20 U/L (<40); Albumin 3.2 gm/dL (3.2-5.2); Albumin/Globulin Ratio 1.3 (1.0-2.3); Alkaline Phosphatase 99 U/L (39-117); Bilirubin,Total 0.3 mg/dL (0.1-1.0); Blood Urea Nitrogen 26 mg/dL (8-23); Calcium 8.4 mg/dL (8.6-10.4); Carbon Dioxide 20 mmol/L (22-30); Chloride 106 mmol/L (96-108); Globulin 2.5 gm/dL (2.2-3.7); Glomerular Filtration Rate 39; Glucose 97 mg/dL (70-105)
[2024-01-21] MEDS ORDERED: SENNOSIDES 1 TABLET PO PRN (15:31)
[2024-01-21] MEDS ORDERED: ONDANSETRON 4 MG/2 ML VIAL IV PRN (15:31)
[2024-01-21] MEDS ORDERED: LACTULOSE 20 GM/30 ML ORAL.SOL PO PRN (15:31)
[2024-01-21] MEDS ORDERED: IPRATROPIUM/ALBUTEROL 3 ML AMPUL.NEB NEB PRN (15:31)
[2024-01-21] MEDS ORDERED: ACETAMINOPHEN 325 MG TABLET PO PRN (15:31)
[2024-01-21] MEDS ORDERED: ACETAMINOPHEN (PP) 325MG TABLET (#50) PO PRN (16:00)
[2024-01-21] MEDS: 0.9 % SODIUM CHLORIDE 1,000 ML IV SCH (16:03)
[2024-01-21] MEDS: DOCUSATE SODIUM 100 MG CAPSULE PO SCH (20:38)
[2024-01-21] MEDS: TAMSULOSIN 0.4 MG CAPSULE PO SCH (20:38)
[2024-01-21] MEDS: ATORVASTATIN 40 MG TABLET PO SCH (20:38)
[2024-01-21] MEDS: 0.9 % SODIUM CHLORIDE 10 ML SYRINGE IV SCH (20:39)
[2024-01-21] MEDS: FAMOTIDINE 20 MG TABLET PO SCH (20:39)
[2024-01-21] MEDS: DABIGATRAN ETEXILATE MESYLATE 150 MG CAPSULE PO SCH (20:39)
[2024-01-22 06:12] LABS: ALT/SGPT 7 U/L (<40); AST/SGOT 20 U/L (<40); Albumin 2.8 gm/dL (3.2-5.2); Albumin/Globulin Ratio 1.2 (1.0-2.3); Alkaline Phosphatase 102 U/L (39-117); Bilirubin,Direct < 0.2 mg/dL (0-0.3); Bilirubin,Total 0.3 mg/dL (0.1-1.0); Blood Urea Nitrogen 17 mg/dL (8-23); Carbon Dioxide 21 mmol/L (22-30); Chloride 110 mmol/L (96-108); Globulin 2.4 gm/dL (2.2-3.7); Glomerular Filtration Rate 61; Glucose 89 mg/dL (70-105); Lactate Dehydrogenase 136 U/L (135-225); Phosphorous 1.9 mg/dL (2.5-4.5); Triglycerides 75 mg/dL (<150); Uric Acid 5.8 mg/dL (2.5-8.0)
[2024-01-22 07:34] LABS: Basophils # (Auto) 0.01 K/mcL (0.00-0.30); Basophils % (Auto) 0.2 % (0.0-2.0); Eosinophils # (Auto) 0.15 K/mcL (0.00-0.70); Eosinophils % (Auto) 3.4 % (0.0-7.0); Hematocrit 26.1 % (40.1-51.0); Hemoglobin 7.9 g/dL (13.7-17.5); Lymphocytes # (Auto) 1.15 K/mcL (1.50-4.80); Lymphocytes % (Auto) 25.8 % (15.5-49.0); Mean Corpuscular HGB Conc 30.3 g/dL (31.0-36.0); Mean Platelet Volume 8.3 fL (8.8-12.5); Monocytes # (Auto) 0.31 K/mcL (0.10-0.90); Neutrophils % (Auto) 63.6 % (38.0-78.0); Platelet Count 284 K/mcL (140-440); RBC 2.69 M/mcL (4.63-6.08); Red Cell Distribution Width 14.4 % (11.5-14.5); WBC 4.5 K/mcL (4.5-11.0)
[2024-01-22] MEDS ORDERED: ASPIRIN 81 MG TAB.CHEW PO SCH (09:00)
[2024-01-22] MEDS: LIDOCAINE 2% URO-JET 10 ML JEL.PF.APP UR ONE ×2 (09:55→10:55)
[2024-01-22] MEDS: FINASTERIDE 5 MG TABLET PO SCH (10:57)
[2024-01-23 06:56] LABS: Basophils # (Auto) 0.01 K/mcL (0.00-0.30); Basophils % (Auto) 0.2 % (0.0-2.0); Eosinophils # (Auto) 0.18 K/mcL (0.00-0.70); Eosinophils % (Auto) 3.7 % (0.0-7.0); Hematocrit 25.6 % (40.1-51.0); Hemoglobin 7.7 g/dL (13.7-17.5); Lymphocytes # (Auto) 1.17 K/mcL (1.50-4.80); Lymphocytes % (Auto) 24.1 % (15.5-49.0); Mean Corpuscular HGB Conc 30.1 g/dL (31.0-36.0); Mean Platelet Volume 8.7 fL (8.8-12.5); Monocytes # (Auto) 0.36 K/mcL (0.10-0.90); Monocytes % (Auto) 7.4 % (1.0-12.0); Neutrophils % (Auto) 64.4 % (38.0-78.0); Platelet Count 275 K/mcL (140-440); RBC 2.64 M/mcL (4.63-6.08); Red Cell Distribution Width 14.5 % (11.5-14.5); WBC 4.9 K/mcL (4.5-11.0)
[2024-01-23 07:31] LABS: ALT/SGPT < 5 U/L (<40); AST/SGOT 19 U/L (<40); Albumin 2.7 gm/dL (3.2-5.2); Albumin/Globulin Ratio 1.2 (1.0-2.3); Alkaline Phosphatase 105 U/L (39-117); Bilirubin,Total 0.2 mg/dL (0.1-1.0); Blood Urea Nitrogen 11 mg/dL (8-23); Calcium 8.2 mg/dL (8.6-10.4); Carbon Dioxide 22 mmol/L (22-30); Chloride 109 mmol/L (96-108); Globulin 2.3 gm/dL (2.2-3.7); Glomerular Filtration Rate 86; Glucose 102 mg/dL (70-105)
[2024-01-23] MEDS: 0.9 % SODIUM CHLORIDE 250 ML IV SCH (15:35)
[2024-01-24 06:24] LABS: Basophils # (Auto) 0.01 K/mcL (0.00-0.30); Basophils % (Auto) 0.2 % (0.0-2.0); Eosinophils # (Auto) 0.18 K/mcL (0.00-0.70); Eosinophils % (Auto) 4.2 % (0.0-7.0); Hematocrit 26.6 % (40.1-51.0); Hemoglobin 8.3 g/dL (13.7-17.5); Lymphocytes # (Auto) 1.17 K/mcL (1.50-4.80); Mean Cell Volume 94.3 fL (80.0-100.0); Mean Corpuscular HGB Conc 31.2 g/dL (31.0-36.0); Mean Platelet Volume 8.7 fL (8.8-12.5); Monocytes # (Auto) 0.36 K/mcL (0.10-0.90); Monocytes % (Auto) 8.3 % (1.0-12.0); Neutrophils % (Auto) 60.3 % (38.0-78.0); Platelet Count 253 K/mcL (140-440); RBC 2.82 M/mcL (4.63-6.08); Red Cell Distribution Width 14.6 % (11.5-14.5); WBC 4.3 K/mcL (4.5-11.0)
[2024-01-24 06:41] LABS: ALT/SGPT 6 U/L (<40); AST/SGOT 18 U/L (<40); Albumin 2.7 gm/dL (3.2-5.2); Albumin/Globulin Ratio 1.2 (1.0-2.3); Alkaline Phosphatase 100 U/L (39-117); Bilirubin,Total 0.3 mg/dL (0.1-1.0); Blood Urea Nitrogen 9 mg/dL (8-23); Calcium 8.1 mg/dL (8.6-10.4); Carbon Dioxide 22 mmol/L (22-30); Chloride 108 mmol/L (96-108); Globulin 2.2 gm/dL (2.2-3.7); Glomerular Filtration Rate 92; Glucose 93 mg/dL (70-105)
[2024-01-25 10:50] LABS: Basophils # (Auto) 0 K/mcL (0.00-0.30); Basophils % (Auto) 0 % (0.0-2.0); Eosinophils # (Auto) 0.14 K/mcL (0.00-0.70); Eosinophils % (Auto) 3.1 % (0.0-7.0); Hematocrit 28.5 % (40.1-51.0); Hemoglobin 8.9 g/dL (13.7-17.5); Lymphocytes # (Auto) 0.84 K/mcL (1.50-4.80); Lymphocytes % (Auto) 18.7 % (15.5-49.0); Mean Cell Volume 93.4 fL (80.0-100.0); Mean Corpuscular HGB Conc 31.2 g/dL (31.0-36.0); Mean Platelet Volume 8.8 fL (8.8-12.5); Monocytes # (Auto) 0.34 K/mcL (0.10-0.90); Monocytes % (Auto) 7.6 % (1.0-12.0); Neutrophils % (Auto) 70.4 % (38.0-78.0); Platelet Count 286 K/mcL (140-440); RBC 3.05 M/mcL (4.63-6.08); Red Cell Distribution Width 14.3 % (11.5-14.5); WBC 4.5 K/mcL (4.5-11.0)
[2024-01-25 11:11] LABS: ALT/SGPT 5 U/L (<40); AST/SGOT 20 U/L (<40); Albumin/Globulin Ratio 1.2 (1.0-2.3); Alkaline Phosphatase 109 U/L (39-117); Bilirubin,Total 0.3 mg/dL (0.1-1.0); Blood Urea Nitrogen 9 mg/dL (8-23); Calcium 8.5 mg/dL (8.6-10.4); Carbon Dioxide 25 mmol/L (22-30); Chloride 105 mmol/L (96-108); Globulin 2.6 gm/dL (2.2-3.7); Glomerular Filtration Rate 92; Glucose 94 mg/dL (70-105)
[2024-01-25] MEDS ORDERED: ONDANSETRON 4 MG/2 ML VIAL ONE (14:26)
[2024-01-25] MEDS ORDERED: PROPOFOL 200 MG/20 ML VIAL IV ONE (14:26)
[2024-01-25] MEDS ORDERED: fentaNYL 100 MCG/2 ML VIAL ONE (14:26)
[2024-01-25] MEDS: ceFAZolin 2 GM in DEXTROSE 5% IN WATER 50 ML IV SCH (14:43)
[2024-01-25] MEDS ORDERED: PHENYLephrine 1 MG/10 ML SYRINGE (ANEST) ONE (15:10)
[2024-01-25] MEDS ORDERED: ROCURONIUM 10 MG/ML ML IV ONE (15:19)
[2024-01-25] MEDS ORDERED: SUGAMMADEX SODIUM 200 MG/2 ML VIAL IV ONE (15:23)
[2024-01-25] MEDS ORDERED: IPRATROPIUM/ALBUTEROL 3 ML AMPUL.NEB NEB PRN (15:26)
[2024-01-25] MEDS: LIDOCAINE 2% URO-JET 10 ML JEL.PF.APP UR ONE (15:30)
[2024-01-26] MEDS: 0.9 % SODIUM CHLORIDE 500 ML IV ONE ×2 (00:06→02:20)
[2024-01-26 07:37] LABS: Basophils # (Auto) 0.01 K/mcL (0.00-0.30); Basophils % (Auto) 0.3 % (0.0-2.0); Eosinophils # (Auto) 0.12 K/mcL (0.00-0.70); Eosinophils % (Auto) 3.1 % (0.0-7.0); Hematocrit 25.4 % (40.1-51.0); Hemoglobin 7.8 g/dL (13.7-17.5); Lymphocytes % (Auto) 25.4 % (15.5-49.0); Mean Cell Volume 95.1 fL (80.0-100.0); Mean Corpuscular HGB Conc 30.7 g/dL (31.0-36.0); Mean Platelet Volume 8.8 fL (8.8-12.5); Monocytes # (Auto) 0.47 K/mcL (0.10-0.90); Neutrophils % (Auto) 58.9 % (38.0-78.0); Platelet Count 238 K/mcL (140-440); RBC 2.67 M/mcL (4.63-6.08); Red Cell Distribution Width 14.3 % (11.5-14.5); WBC 3.9 K/mcL (4.5-11.0)
[2024-01-26 07:58] LABS: Blood Urea Nitrogen 10 mg/dL (8-23); Carbon Dioxide 25 mmol/L (22-30); Chloride 107 mmol/L (96-108); Glomerular Filtration Rate 86; Glucose 92 mg/dL (70-105)
[2024-01-26] MEDS: 0.9 % SODIUM CHLORIDE 250 ML IV SCH (13:36)
[2024-01-26] MEDS: FUROSEMIDE 20 MG/2 ML VIAL IV ONE ×2 (14:38→14:52)
[2024-01-27 08:37] LABS: Basophils # (Auto) 0.01 K/mcL (0.00-0.30); Basophils % (Auto) 0.2 % (0.0-2.0); Eosinophils # (Auto) 0.18 K/mcL (0.00-0.70); Eosinophils % (Auto) 3.5 % (0.0-7.0); Hematocrit 29.7 % (40.1-51.0); Hemoglobin 9.2 g/dL (13.7-17.5); Lymphocytes # (Auto) 1.19 K/mcL (1.50-4.80); Lymphocytes % (Auto) 22.8 % (15.5-49.0); Mean Cell Volume 93.1 fL (80.0-100.0); Mean Platelet Volume 8.9 fL (8.8-12.5); Monocytes # (Auto) 0.58 K/mcL (0.10-0.90); Monocytes % (Auto) 11.1 % (1.0-12.0); Neutrophils % (Auto) 62.2 % (38.0-78.0); Platelet Count 263 K/mcL (140-440); RBC 3.19 M/mcL (4.63-6.08); Red Cell Distribution Width 14.5 % (11.5-14.5); WBC 5.2 K/mcL (4.5-11.0)
[2024-01-27 08:48] LABS: ALT/SGPT < 5 U/L (<40); AST/SGOT 21 U/L (<40); Albumin/Globulin Ratio 1.2 (1.0-2.3); Alkaline Phosphatase 105 U/L (39-117); Bilirubin,Total 0.4 mg/dL (0.1-1.0); Blood Urea Nitrogen 13 mg/dL (8-23); Calcium 8.3 mg/dL (8.6-10.4); Carbon Dioxide 27 mmol/L (22-30); Chloride 104 mmol/L (96-108); Globulin 2.5 gm/dL (2.2-3.7); Glomerular Filtration Rate 86; Glucose 100 mg/dL (70-105)
== END 2024-01-27 14:45 | disposition home or self-care (01) | DRG 988 ==
LOC: ED 09:58 → ICU 09:58 → MEDSUR 01-24 11:22
PROVIDERS: ADMIT Internal Medicine; ATTEND Internal Medicine